=== PATIENT | female | born 1960 | race Caucasian/White ===

== ENCOUNTER → 2020-05-13 13:21 | Outpatient (CLI) | payer OTHER, SELFPAY ==
--- NOTE | ~2020-05-13 | DEXA_ITS ---
Bone Density Report Name: Radha Mendiola Age: 59 Sex: Female Ethnicity: White Date of : 1960 Indication: osteopenia; hysterectomy; postmenopausal Referring Provider: Emma Rangel Study: Bone densitometry was performed. Exam Date: May 13, 2020 Accession number: [id number] Bone Density: Region BMD T-score Z-score Classification AP Spine (L1-L4) 0.850 -1.8 -0.3 Osteopenia Femoral Neck (Left) 0.652 -1.8 -0.5 Osteopenia Total Hip (Left) 0.903 -0.3 0.7 Normal Femoral Neck (Right) 0.679 -1.5 -0.2 Osteopenia Total Hip (Right) 0.867 -0.6 0.4 Normal Total Hip Mean 0.885 -0.5 0.6 Normal World Health Organization criteria for BMD impression classify patients as: Normal (T-score at or above -1.0), Osteopenia (T-score between -1.0 and -2.5), or Osteoporosis (T-score at or below -2.5). 10-year Fracture Risk(1): Major Osteoporotic Fracture 8.3% Hip Fracture 0.9% Reported Risk Factors: [place] (), Neck BMD=0.652, BMI=22.1 (1) FRAX(R) Version 3.08. Fracture probability calculated for an untreated patient. Fracture probability may be lower if the patient has received treatment. Previous Exams: Region Exam Age BMD T-score BMD Change BMD Change Date g/cm2 vs Baseline vs Previous AP Spine(L1-L4) 05/13/2020 59 0.850 -1.8 -0.100* -0.058* 04/22/2018 57 0.909 -1.3 -0.041* 0.007 05/16/2015 54 0.902 -1.3 -0.048* -0.048* 03/21/2012 51 0.950 -0.9 Total Hip(Left) 05/13/2020 59 0.903 -0.3 -0.036* -0.006 04/22/2018 57 0.909 -0.3 -0.030* 0.000 05/16/2015 54 0.909 -0.3 -0.030* -0.030* 03/21/2012 51 0.939 0.0 Total Hip(Right) 05/13/2020 59 0.867 -0.6 -0.028* -0.001 04/22/2018 57 0.869 -0.6 -0.027 -0.010 05/16/2015 54 0.879 -0.5 -0.017 -0.017 03/21/2012 51 0.896 -0.4 *Denotes significance at 95% confidence level, LSC for AP Spine = 0.022 g/cm2, LSC for Total Hip = 0.027 g/cm2 Clinical Information Provided by Patient: Has used the following medications: Vitamin D, Calcium Has the following medical conditions: Hysterectomy Patient maximum height was 65.8 Menopause Age: 51 No regular weight bearing exercise Drinks caffeinated beverages Onset of menses at age 12 Number of children 4 Impression: The patient has low bone mass, based on
--- NOTE | ~2020-05-13 | MM_ITS ---
EXAMINATION: MM screening [facility] BI w go HISTORY: Screening mammogram TECHNIQUE: Craniocaudal and mediolateral oblique 3-D tomosynthesis images were obtained and synthetic 2-D images were generated. CAD analysis was submitted and interpreted. COMPARISON: 05/05/2019, 11/01/2018, 04/25/2018, 01/30/2016 BREAST PARENCHYMAL COMPOSITION: The breasts are heterogeneously dense, which may obscure small masses . FINDINGS: There is no evidence of suspicious mass, calcification, or architectural distortion to sugg est malignancy in either breast. There has been no suspicious interval change. IMPRESSION: 1. No mammographic evidence of malignancy. 2. Recommend routine screening mammography in one year. BI-RADS Category 1: Negative Reviewed, dictated and finalized at location A.
== END ==
PROVIDERS: PCP Family Medicine; Visit Provider Student in an Organized Health Care Education/Training Program
DX: Z12.31 Encounter for screening mammogram for malignant neoplasm of breast (principal); Z13.820 Encounter for screening for osteoporosis; Z78.0 Asymptomatic menopausal state; M85.89 Other specified disorders of bone density and structure, multiple sites
CPT/HCPCS: 77063; 77067; 77080

== ENCOUNTER → 2021-06-05 14:54 | Outpatient (CLI) | payer OTHER, SELFPAY ==
--- NOTE | ~2021-06-05 | MM_ITS ---
EXAMINATION: MM screening [facility] BI w go HISTORY: Screening TECHNIQUE: Craniocaudal and mediolateral oblique 3-D tomosynthesis images were obtained and synthetic 2-D images were generated. CAD analysis was submitted and interpreted. COMPARISON: Comparison to multiple prior studies sequentially, with oldest reviewed study dated 11/2017. BREAST PARENCHYMAL COMPOSITION: The breasts are heterogenously dense, which may obscure small masses FINDINGS: There is no evidence of suspicious mass, calcification, or architectural distortion to sugg est malignancy in either breast. There has been no suspicious interval change. IMPRESSION: 1. No mammographic evidence of malignancy. 2. Recommend routine screening mammography in one year. BI-RADS Category 1: Negative Reviewed, dictated and finalized at location A.
== END ==
PROVIDERS: Visit Provider Student in an Organized Health Care Education/Training Program
DX: Z12.31 Encounter for screening mammogram for malignant neoplasm of breast (principal)
CPT/HCPCS: 77063; 77067

== ENCOUNTER → 2022-09-02 12:50 | Outpatient (CLI) | payer OTHER, SELFPAY ==
--- NOTE | ~2022-09-02 | MM_ITS ---
EXAMINATION: MM screening [facility] BI w go HISTORY: Screening TECHNIQUE: Craniocaudal and mediolateral oblique 3-D tomosynthesis images were obtained and synthetic 2-D images were generated. CAD analysis was submitted and interpreted. COMPARISON: Comparison to multiple prior studies sequentially, with oldest reviewed study dated 11/2017. BREAST PARENCHYMAL COMPOSITION: The breasts are heterogeneously dense, which may obscure small masses FINDINGS: There is no evidence of suspicious mass, calcification, or architectural distortion to sugg est malignancy in either breast. There has been no suspicious interval change. IMPRESSION: 1. No mammographic evidence of malignancy. 2. Recommend routine screening mammography in one year. BI-RADS Category 1: Negative Reviewed, dictated and finalized at location B. BASE DBA
== END ==
PROVIDERS: Visit Provider Student in an Organized Health Care Education/Training Program
DX: Z12.31 Encounter for screening mammogram for malignant neoplasm of breast (principal)
CPT/HCPCS: 77063; 77067

== ENCOUNTER → 2022-12-14 12:53 | Outpatient (CLI) | payer BC, SELFPAY ==
--- NOTE | ~2022-12-14 | US_ITS ---
Thyroid ultrasound. Clinical History: Nontoxic goiter Findings: Real-time sonography of the thyroid gland was performed. The right lobe measures 6.1 x 2.1 x 2.1 cm. The left lobe measures 5.2 x 1.6 x 1.7 cm. The isthmus is 3 mm in AP diameter. There is 8 mm heterogeneous hypoechoic nodule at the left lower pole. There is a 2.1 x 0.9 x 1.6 cm m ixed solid and cystic nodule at the right upper pole. There is a 0.9 cm hypoechoic possibly spongifor m nodule at the right midpole. Multiple additional smaller bilateral thyroid nodules are present. Impression: 2.1 cm solid and cystic nodule in the right upper pole. Annual follow-up ultrasound advised. Reviewed, dictated and finalized at location . Impression: 2.1 cm solid and cystic nodule in the right upper pole. Annual follow-up ultras ound advised.
== END ==
PROVIDERS: PCP Emergency Medicine; Visit Provider Registered Nurse
DX: E04.9 Nontoxic goiter, unspecified (principal)
CPT/HCPCS: 76536

== ENCOUNTER → 2022-12-18 11:09 | Outpatient (CLI) | payer BC, SELFPAY ==
--- NOTE | ~2022-12-18 | XR_ITS ---
AP and lateral views of the right hip Clinical history: Pain Findings: No acute fracture or dislocation is seen. Osseous alignment is anatomic. The right hip join t is preserved. Soft tissues are unremarkable. Impression: No significant abnormality is seen. Reviewed, dictated and finalized at location . Impression: No significant abnormality is seen.
--- NOTE | ~2022-12-18 | XR_ITS ---
XR knee RT 3V DATE: 12/18/2022 11:50 INDICATION: Right knee pain TECHNIQUE: [place] and standing AP and lateral views COMPARISON: None FINDINGS: No fracture or dislocation or joint effusion. No periosteal reaction or bone destruction. J oint spaces are preserved. No radiopaque intra-articular loose body or chondrocalcinosis. IMPRESSION: Negative Reviewed, dictated and finalized at location B. IMPRESSION: Negative
--- NOTE | ~2022-12-18 | XR_ITS ---
XR lumbar spine 2-3V DATE: 12/18/2022 11:51 INDICATION: Back pain TECHNIQUE: AP, lateral, coned lateral lumbosacral views COMPARISON: 08/17/2017 lumbar spine FINDINGS: There is diffuse osteopenia. Degenerative spurring of the lower thoracic spine. There is multilevel degenerative disc disease of the lumbar spine, severe at L2-3, mild at L1-2 and L 3-4. There is degenerative change at the apophyseal joints particularly in the lower lumbar and lumbosacra l area with associated grade 1 anterolisthesis at L4-5. No fracture or bone destruction is evident. Included lower thoracic and lumbar pedicles are intact. T he sacroiliac joints appear intact. IMPRESSION: Osteopenia Multilevel degenerative disc disease, most prominent at L2-3 Grade 1 anterolisthesis at L4-5 Reviewed, dictated and finalized at location B.
== END ==
PROVIDERS: PCP Emergency Medicine; Visit Provider Physician Assistant
DX: M51.36 Other intervertebral disc degeneration, lumbar region (principal); M85.88 Other specified disorders of bone density and structure, other site; M25.561 Pain in right knee
CPT/HCPCS: 72100; 73502; 73562

== ENCOUNTER → 2023-01-08 15:24 | Outpatient (CLI) | payer BC, SELFPAY ==
--- NOTE | ~2023-01-08 | MR_ITS ---
MRI of the right knee Clinical history: Pain Technique: Coronal proton density and proton density-weighted images, sagittal proton-density and T2 fat-sat images, and axial proton-density fat-saturated images were acquired. Findings: Anterior and posterior cruciate ligaments are intact. Medial collateral ligament and the la teral collateral ligament complex are intact. Popliteus tendon is intact. Medial meniscus is intact, without evidence of tear. There is large horizontal tear involving the bod y segment probably of the lateral meniscus. There is an associated 0.5 x 1.4 x 2.6 cm para -meniscal cyst along the lateral margin of the lateral meniscus (series 6 image 7, series 2 image 19). There is mild chondromalacia throughout the knee. Bone marrow signals are unremarkable. Extensor mechanism is intact. Minimal joint effusion present. [id number] Hernandez's cyst present. Impression: Large horizontal tear of the body segment of the lateral meniscus with associated 0.5 x 1.4 x 2.6 cm para-meniscal cyst, as detailed above. Small to moderate Hernandez's cyst. Mild chondromalacia throughout the knee. Reviewed, dictated and finalized at location . Impression: Large horizontal tear of the body segment of the lateral meniscus with associat ed 0.5 x 1.4 x 2.6 cm para-meniscal cyst, as detailed above. Small to moderate Hernandez's cyst. Mild chondromalacia throughout the knee.
== END ==
PROVIDERS: PCP Emergency Medicine; Visit Provider Physician Assistant Surgical
DX: M71.21 Synovial cyst of popliteal space [Baker], right knee (principal); S83.281A Other tear of lateral meniscus, current injury, right knee, initial encounter; X58.XXXA Exposure to other specified factors, initial encounter; M22.41 Chondromalacia patellae, right knee
CPT/HCPCS: 73721

== ENCOUNTER 2023-12-14 10:37 | Outpatient (CLI) | payer BC, SELFPAY ==
--- NOTE | ~2023-12-14 | US_ITS ---
EXAMINATION: US thyroid DATE: 12/14/2023 10:53 INDICATION: Nontoxic single thyroid nodule. TECHNIQUE: Multiple ultrasound images of the thyroid were obtained. COMPARISON: Thyroid ultrasound 12/14/2022 FINDINGS: The right thyroid lobe measures 5.6 x 2.4 x 2.0 cm. The left thyroid lobe measures 3.9 x 1.5 x 1.6 c m. In the right thyroid lobe, there is a 20 mm mixed cystic and solid, hypoechoic, wider than tall n odule with smooth margin without echogenic foci (TI-RADS TR3). In the left thyroid lobe, there is an 8 mm solid, hypoechoic, wider than tall nodule with ill-defined margin without echogenic foci (TR4). There are multiple nodules in the thyroid measuring less than 5 mm. IMPRESSION: 1. Multinodular goiter. Thyroid ultrasound is recommended in 2 years. Reviewed, dictated and finalized at location A.
== END 2023-12-14 10:38 ==
PROVIDERS: PCP Emergency Medicine; Visit Provider Obstetrics & Gynecology
DX: E04.2 Nontoxic multinodular goiter (principal)
CPT/HCPCS: 76536

== ENCOUNTER 2023-12-22 11:25 | Outpatient (CLI) | payer BC, SELFPAY ==
--- NOTE | ~2023-12-22 | MM_ITS ---
EXAMINATION: MM screening [facility] BI w go HISTORY: Screening TECHNIQUE: Craniocaudal and mediolateral oblique 3-D tomosynthesis images were obtained and synthetic 2-D images were generated. CAD analysis was submitted and interpreted. COMPARISON: Comparison to multiple prior studies sequentially, with oldest reviewed study dated 02/2018. BREAST PARENCHYMAL COMPOSITION: Dense: The breasts are heterogeneously dense, which may obscure small masses FINDINGS: There is no evidence of suspicious mass, calcification, or architectural distortion to sugg est malignancy in either breast. There has been no suspicious interval change. IMPRESSION: 1. No mammographic evidence of malignancy. 2. Recommend routine screening mammography in one year. BI-RADS Category 1: Negative Reviewed, dictated and finalized at location A.
== END 2023-12-22 11:26 ==
LOC: MICIMG 11:27
PROVIDERS: PCP Nurse Practitioner Family; Visit Provider Nurse Practitioner Family
DX: Z12.31 Encounter for screening mammogram for malignant neoplasm of breast (principal)
CPT/HCPCS: 77063; 77067

== ENCOUNTER 2024-06-10 07:51 | Outpatient (CLI) | payer BC, SELFPAY ==
--- NOTE | ~2024-06-10 | DEXA_ITS ---
Bone Density Report Name: DEV COMBS Age: 63 Sex: Female Ethnicity: White Date of : 1960 Indication: postmenopausal; screening for osteoporosis; cancer; hysterectomy; Referring Provider: RUDY TORRES Study: Bone densitometry was performed. Exam Date: June 10, 2024 Accession number: [id number] Bone Density: Region BMD T-score Z-score Classification AP Spine(L1-L4) 0.854 -1.8 0.0 Osteopenia Femoral Neck (Left) 0.640 -1.9 -0.4 Osteopenia Total Hip (Left) 0.879 -0.5 0.7 Normal Femoral Neck (Right) 0.661 -1.7 -0.2 Osteopenia Total Hip (Right) 0.870 -0.6 0.6 Normal Total Hip Mean 0.875 -0.6 0.7 Normal World Health Organization criteria for BMD impression classify patients as: Normal (T-score at or above -1.0), Osteopenia (T-score between -1.0 and -2.5), or Osteoporosis (T-score at or below -2.5). 10-year Fracture Risk(1): Major Osteoporotic Fracture 9.5% Hip Fracture 1.3% Reported Risk Factors: [place] (), Neck BMD=0.640, BMI=23.0 (1) FRAX(R) Version 3.08. Fracture probability calculated for an untreated patient. Fracture probability may be lower if the patient has received treatment. Clinical Information Provided by Patient: Has used the following medications: Vitamin D, Calcium Has the following medical conditions: Cancer, Hysterectomy Patient maximum height was 65.75 Menopause Age: 51 Drinks caffeinated beverages Onset of menses at age 12 Number of children 4 Impression: The patient has low bone mass, based on the Left Femoral Neck T-score. The patient has an estimated ten-year risk of hip fracture of 1.3% and an estimated ten-year risk of major fracture of 9.5%, based on the WHO FRAX algorithm. Discussion: BONE DENSITY IS LOW AT ONE OR MORE SKELETAL SITES. This patient's lowest T-score is low at one or more skeletal sites. It meets the World Health Organization's (WHO) criteria for ?low bone mass? (T-score between -1.0 and -2.5). The patient's 10-year risk of fracture as calculated by FRAX is less than the threshold where pharmacological therapy is recommended by the National Osteoporosis Foundation (NOF). However, all treatment decisions require clinical judgment and consideration of individual patient factors, including patient preferences, comorbidities, previous drug use, risk factors not captured in the FRAX model (e.g., frailty, falls, vitamin D deficiency, increased bone turnover, interval significant decline in bone density) and possible under or overestimation of fracture risk by FRAX. The patient should follow a healthful lifestyle (good nutrition with adequate calcium and vitamin D, and appropriate weight-bearing exercise). Follow-Up: Consider repeating this study in 2 to 3 years to reassess this patient's status, or sooner if there is
== END 2024-06-10 07:52 | disposition home or self-care (01) ==
LOC: ANHIMG 08:00
PROVIDERS: PCP Emergency Medicine; Visit Provider Nurse Practitioner Family
DX: Z13.820 Encounter for screening for osteoporosis (principal); M85.89 Other specified disorders of bone density and structure, multiple sites; Z78.0 Asymptomatic menopausal state
CPT/HCPCS: 77080

== ENCOUNTER 2025-02-22 14:09 | Outpatient (CLI) | payer OTHER, SELFPAY ==
--- NOTE | ~2025-02-22 | MM_ITS ---
EXAMINATION: MM screening [facility] BI w go HISTORY: Screening TECHNIQUE: Craniocaudal and mediolateral oblique 3-D tomosynthesis images were obtained and synthetic 2-D images were generated. CAD analysis was submitted and interpreted. COMPARISON: 12/22/2023 through 05/05/2019. BREAST PARENCHYMAL COMPOSITION: The breasts are heterogeneously dense, which may obscure small masses . FINDINGS: There is no evidence of suspicious mass, calcification, or architectural distortion to sug gest malignancy in either breast. There has been no suspicious interval change. IMPRESSION: 1. No mammographic evidence of malignancy. 2. Recommend routine screening mammography in one year. BI-RADS Category 1: Negative Reviewed, dictated and finalized at location []
== END 2025-02-22 14:10 | disposition home or self-care (01) ==
LOC: MICIMG 14:10
PROVIDERS: PCP Family Medicine; Visit Provider Nurse Practitioner Family
DX: Z12.31 Encounter for screening mammogram for malignant neoplasm of breast (principal)
CPT/HCPCS: 77063; 77067

== ENCOUNTER 2025-03-30 17:01 | Inpatient (IN) | payer OTHER, SELFPAY ==
--- NOTE | ~2025-03-30 | CT_ITS ---
Clinical Indication: Chest pain CT Scan of the Chest with Contrast: Technique: Contiguous sections were acquired throughout the chest after intravenous administration of 100 cc of Omnipaque 350. Dose reduction technique was used on this scan by utilizing automated expos ure control and iterative reconstruction technique. The dose-length product (DLP) was 188.40 mGy-cm. Findings: There is no evidence of any significant mediastinal, hilar or axillary lymphadenopathy. There is no f illing defect in the pulmonary arterial tree to suggest pulmonary embolus. There is no evidence of ao rtic dissection or aneurysm. No pericardial effusion. Minimal right pleural effusion present. No left pleural effusion. There is consolidation at the anteroinferior right upper lobe, compatible with pneumonia. There is mi nimal dependent atelectatic change bilaterally. Images through the upper abdomen reveal hepatic cyst. Impression: No evidence of pulmonary embolus, aortic dissection, or aortic aneurysm. Pneumonia in the anterior, inferior right upper lobe. Minimal right pleural effusion. Reviewed, dictated and finalized at location . Impression: No evidence of pulmonary embolus, aortic dissection, or aortic aneurysm. Pneumonia in the anterior, inferior right upper lobe. Minimal right pleural effusion.
--- NOTE | ~2025-03-30 | XR_ITS ---
XR chest 2V Ordering provider: Alejandro Storm MD History: 64 years Female with . R sided chest pain . Comparison: August 12, 2011 FINDINGS: MEDIASTINUM: The cardiac silhouette is not enlarged. LUNGS: No infiltrates, effusions or pneumothorax. OTHER: No free air under the diaphragm. Degenerative changes of the spine. IMPRESSION: No acute cardiopulmonary pathology. Reviewed, dictated and finalized at location A.
--- NOTE | ~2025-03-30 | NM_ITS ---
EXAMINATION: NM vlad stress w perfusion DATE: 04/02/2025 11:38 INDICATION: Chest pain TECHNIQUE: Rest images were obtained following intravenous administration of 10 mCi Tc99m tetrofosmin (Myoview). The patient was infused intravenously with Lexiscan (Regadenoson). Then, 37 mCi Tc99m tet rofosmin (Myoview) was administered intravenously, and stress images were obtained. Data was reconstr ucted into short axis and horizontal and vertical long axis SPECT images. Gated SPECT images were als o obtained. COMPARISON: None. FINDINGS: There is no definite reversible or fixed perfusion abnormality to suggest ischemia or infar ction. There is normal left ventricular chamber size, wall motion and ejection fraction. Left ventr icular ejection fraction measures >70%. IMPRESSION: 1. Normal myocardial perfusion at rest and during stress. 2. Left ventricular ejection fraction measuring >70%. Reviewed, dictated and finalized at location A.
--- NOTE | 2025-03-30 17:02 | ECG_ITS ---
Test Date: 2025-03-30 17:16:21 Measurements Intervals [place] Rate: 106 P: 74 IA: 151 QRS: 76 QRSD: 84 T: 61 QT: 312 QTc: 414 Interpretive Statements SINUS TACHYCARDIA WITH FREQUENT SUPRAVENTRICULAR PREMATURE COMPLEXES Electronically Signed On 03-31-2025 08:10:11 CDT by Curt Gallegos D.O
--- OUTSIDE RECORDS SUMMARY | 2025-03-30 17:02 | XMS_ITS | Clinical Summary ---
Author Organization [facility] Address [address] [place] [address] Care Team Providers Care Integrated Specialist Name Role Phone Chelsie Roth MD Primary Care Provider [phone] Source Comments [facility],non-owned Affiliates and Associated Physician Practices is amultiple site organization consisting of ambulatory clinics and hospital sitesin [place], [place], [place] and [place]. This disclosure is being madepursuant to the Care Everywhere program and may not contain all information available regarding this patient. Last updated 18.[facility] Allergies No known active allergies Medications * Be aware that medications may not be up to date on this document. Alwaysverify current medications with the patient. hydrocodone-acet aminophen (NORCO) 5-325 MG tablet Take 1 Tab by mouth every 4 hours as needed for Pain. 15 Tab 0 11/02/2014 Active cyclobenzaprine (FLEXERIL) 5 MG TABS tablet Take 1 Tab by mouth every 8 hours as needed (Spasms). 15 Tab 0 11/02/2014 Active Social History Tobacco Use Types Packs/Day Years Used Date Smoking Tobacco: Never Alcohol Use Standard Drinks/Week Comments No 0 (1 standard drink = 0.6 oz pur e alcohol) Comments Unknown Sex and Gender Information Value Date Recorded Sex Assigned at Not on file Legal Sex Female 8:09 PM [employer] Gender Identity Not on file Sexual Orientation Not on file Last Filed Vital Signs Vital Sign Reading Time Taken Comments Blood Pressure 125/62 11/02/2014 10:29 PM [employer] Pulse 82 11/02/2014 10:29 PM [employer] Temperature 36.9 C (98.4 F) 11/02/2014 8:18 PM [employer] Respiratory Rate 16 11/02/2014 10:29 PM [employer] Oxygen Saturation 100% 11/02/2014 10:29 PM [employer] Inhaled Oxygen Concentration - - Weight 58.5 kg (129 lb) 11/02/2014 8:18 PM [employer] Height 165.1 cm (5' 5) 11/02/2014 8:18 PM [employer] Body Mass Index 21.47 11/02/2014 8:18 PM [employer] Plan of Treatment Health Maintenance Due Date Last Done Comments BONE DENSITY TESTING 1960 COLOGUARD (AGES 45-75) - COL ON CA SCREENING 1960 COLON MONITORING 1960 COLONOSCOPY - COLON CA SCREENING 1960 CT COLONOGRAPHY - COLON CA SCREENING 1960 Colorectal Cancer Screening 1959 FIT - COLON CA SCREENING 1959 FLEX SIG - COLON CA SCREENING 1959 LIPID TESTING 1959 MAMMOGRAM 1959 HIV SCREENING 1974 HEPATITIS C SCREENING 06/28/1977 DTAP/TDAP/TD VACCINES (1 - Tdap) 1978 PNEUMOCOCCAL VACCINE 50+ (1 of 1 - PCV) 2009 ZOSTER VACCINE (1 of 2) 2009 COVID-19 VACCINE (1 - 2023-2 5 season) 2024 DEPRESSION SCREENING 09/20/2024 INFLUENZA VACCINE (#1) 2025 Respiratory Syncytial Virus (RSV) Vaccine Pt: or over 60 yrs (1 - 1-dose 75+ series) 2034 HEPATITIS B VACCINE Aged Out No longe r eligible based on patient's age to complete this topic HIB VACCINE Aged Out No longer eligi ble based on patient's age to complete this topic HPV VACCINE Aged Out No longer eligi ble based on patient's age to complete this topic MENINGOCOCCAL (Group B) VACC INE SHARED DECISION-MAKING Aged Out No longer eligibl e based on patient's age to complete this topic MENINGOCOCCAL GROUPS A/C/Y/W VACCINE Aged Out No longer eligible b ased on patient's age to complete this topic Insurance [employer] Care Teams Integrated Specialist Relationship Specialty Start Date End Date Chelsie Roth MD [address] [place] [address] PCP - General Family Medicine 11/02/14
--- OUTSIDE RECORDS SUMMARY | 2025-03-30 17:02 | XMS_ITS | Encounter Summary ---
Author Organization [facility] Address [address] [place] [address] Phone Care Team Providers Care Separator Operator Name Role Phone Chris Yoo MD Primary Care Provider [phone] Reason for Visit * Reason Onset Date Comments In office procedure 03/26/2025 Encounter Details Date Type Department Care Team (Late st Contact Info) Description 03/26/2025 Telephone [facility] Dermatology [address] [place] [phone] Sherri Goel PA [address] [place] [address] In office procedure Social History Tobacco Use Types Packs/Day Years Used Date Smoking Tobacco: Never Smokeless Tobacco: Never Alcohol Use Standard Drinks/Week Comments Yes 0 (1 standard drink = 0.6 oz pur e alcohol) AUDIT-C Answer Date Recorded Q1: How often do you have a drink containing alc ohol? 2-4 times a month 12/28/2023 Average Number of Drinks Not on file 024 Frequency of Binge Drinking Not on file 05/2024 Personal Safety Answer Date Recorded Have you ever been in or are you currently in a harmful physical or emotional relationship or is someone making you feel afraid or unsafe? 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 Radha Mendiola wants to speak with someone before rescheduling. documented in this encounter Plan of Treatment Not on file documented as of this encounter Visit Diagnoses Not on filedocumented in this encounter Care Teams Separator Operator Relationship Specialty Start Date End Date Chris Yoo MD [address] [facility] [address] [address] PCP - General Family Medicine 12/28/23 documented as of this encounter
--- OUTSIDE RECORDS SUMMARY | 2025-03-30 17:02 | XMS_ITS | Clinical Summary ---
Author Organization [facility] Address [address] [place] [address] Care Team Providers Care Phone Triage Specialist Name Role Phone Chris Yoo MD Primary Care Provider [phone] Allergies Active Allergy Reactions Criticality Noted Date Comments Amoxicillin-Pot Clavulanate Diarrhea Low 09/09/20 18 Medications geriatric multivitamin-mi n tablet Take 1 tablet by mouth nightly Active biotin 1 mg capsule Take 1 tablet by mouth 2 (two) times a day Active glucosamine/cho ndr carbajal A sod (OSTEO BI-FLEX ORAL) Take 1 tablet by mouth 2 (two) times a day Active calcium carbonate-vitam in D3 1,500 mg (600mg elemental) -800 unit per tablet Take 1 tablet by mouth daily Active estradioL (ESTRACE) 0.01 % (0.1 mg/gram) vaginal cream 5 Active metroNIDAZOLE (METROCREAM) 0.75 % creamIndication s:Acne Rosacea Apply topically 2 (two) times a day On the face 45 g 1 5 Active Active Problems Problem Noted Date Diagnosed Date Trigger thumb of right hand 01/31/2024 Incomplete uterovaginal prolapse 11/30/2023 Cystocele, midline 11/30/2023 Stress incontinence, female 11/30/2023 Right hand pain 12/30/2022 Trigger finger of right thumb 12/30/2022 Actinic keratosis 07/02/2017 Skin neoplasm 07/02/2017 Basal cell carcinoma (BCC) of lower extremity History of nonmelanoma skin cancer 07/02/2015 Encounters Date Type Department Care Team Description 03/26/2025 Telephone [facility] [address] [place] [address] Sherri Goel PA In office procedure 01/11/2025 Results Follow-Up [facility] [address] [place] [address] Sherri Goel PA Surgical pathology 01/08/2025 Orders Only [facility] [address] [place] [address] Sherri Goel PA Neoplasm of unspecified behavior of bone, soft tissue, and skin 01/05/2025 8:15 AM CDT Office Visit [facility] [address] [place] [phone] Sherri Goel PA Neoplasm of unspecified behavior of bone, soft tissue, and skin (Primary Dx); Rosacea, unspecified; Lichenoid keratosis; History of nonmelanoma skin cancer from Last 3 Months Surgical History Surgery Date Site/Laterality Comments HYSTERECTOMY SKIN CANCER DESTRUCTION MOUTH SURGERY cyst removed from gums CATARACT EXTRACTION 10/21/2023 Bilateral BLADDER SUSPENSION 12/28/2023 with sling TRIGGER FINGER RELEASE 02/15/2024 Right thumb Medical History Medical History Date Comments Basal cell carcinoma of skin of face Basal cell carcinoma of skin of face - (Added by TW Conv) Arthritis Incomplete uterovaginal prolapse Cystocele, midline Stress incontinence, female Family History Medical History Relation Name Comments Diabetes Brother Arthritis Father Basal cell carcinoma Father Family history of basal cell carcinoma - (Added by TW Conv) Arthritis Mother Hypertension Mother Relation Name Status Comments Brother Father Mother Social History Tobacco Use Types Packs/Day Years [...] on file 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 Gender Identity Not on file Sexual Orientation Not on file 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 Not on file Not on file Not on file Obstetrics History Last Filed Vital Signs Vital Sign Reading Time Taken Comments Blood Pressure 123/80 02/15/2024 7:50 AM CDT Pulse 71 02/15/2024 7:50 AM CDT Temperature 36.2 C (97.1 F) 02/15/2024 7:35 AM CDT Respiratory Rate 14 02/15/2024 7:50 AM CDT Oxygen Saturation 98% 02/15/2024 7:50 AM CDT Inhaled Oxygen Concentration - - Weight 61.9 kg (136 lb 8 oz) 02/15/2024 6:11 AM CDT Height 165.1 cm (5' 5) 02/15/2024 6:11 AM CDT Body Mass Index 22.71 02/15/2024 6:11 AM CDT Plan of Treatment Health Maintenance Due Date Last Done Comments Breast Cancer Screening-Mammogram 1960 Colon Cancer Screening-Colonoscopy 1960 Depression Screening 1959 Hepatitis C Screening 1959 Osteoporosis Screening-Bone Density Scan 1959 DTaP/Tdap/Td Vaccine (1 - Tdap) 1970 Hepatitis B Screening 1977 Pneumococcal vaccine 65+ (1 of 1 - PCV) 2009 Zoster Vaccine (1 of 2) 2009 Well Visit 65+ 2024 Fall Risk Assessment 12/27/2024 12/28/2023 Influenza Vaccine (#1) 2025 06/23/2019, 2017 Medical Devices Implanted Type Area Labor Crew Supervisor Device Identifier Shelf Expiration Date Model / Serial / Lot [employer] Upsylon 35.4cm Elongation Profile Lightweight Large Pore Low [id number] - [id number] Implanted:Qty: 1 on 12/28/2023 by Osmar Acharya MD at [facility] N/A: Pelvis [employer] 09/19/2026 [id number] / / [id number] [employer] Sling Urinary Incontinence Female Stress Short Desara Blue Lori-Ds01bs - [id number] Implanted:Qty: 1 on 12/28/2023 by Osmar Acharya MD at [facility] N/A: Urethra [employer] 06/10/2026 LORI-DS01B S / / [id number] Procedures Procedure Name Priority Date/Time Associated Diagnosis Comments SURGICAL PATHOLOGY Routine 01/05/2025 12 :00 AM CDT Neoplasm of unspecified behavior of bone, soft tissue, and skin from Last 3 Months Results * Surgical pathology (01/05/2025 12:00 AM CDT) Tissue (Skin, shave biopsy) 01/05/2025 01/08/2025 6:07 AM CDT [facility] - 01/09/2025 2:43 PM CDT EPIC results best viewed via link to PDF [facility]at[facility] [address] [place] [address], [address], [place] [address] [email or web address] Note to Patients: This report may contain a detailed description of human tissue sent by a health care provider to the laboratory for pathologic evaluation. The content of this report is essential for diagnosis and may provide important critical findings. This information may be unfamiliar to patients to review without a medical professional present. It is advised that the patient review this report in the presence of a health care provider who can answer questions and explain the details. FINAL REPORT Patient Information: PATIENT NAME: RADHA MENDIOLA SEX: F : 1960 (Age: 64) Specimen Information: COLLECTED: 01/05/2025 RECEIVED: 01/08/2025 REPORTED: 01/09/2025 Submitting Physician Information: Sherri Goel PA-C [address], [address], [place] [address] , DERMATOPATHOLOGY REPORT RESULTS DIAGNOSIS: A. SKIN, RIGHT CHEST, SHAVE BIOPSY: BASAL CELL CARCINOMA B. SKIN, RIGHT WRIST, SHAVE BIOPSY: BASAL CELL CARCINOMA galileo/lac By this signature, I attest that the above diagnosis is based upon my personal examination of the slides(and/or other material indicated in the diagnosis). Patria Costa M.D. Report Electronically Reviewed and Signed Out By Patria Costa M.D. 01/09/2025 14:43:18 CLINICAL INFORMATION A. BCC B. SCC SPECIMEN DATA MICROSCOPIC DESCRIPTION: A-B. Irregular aggregates of atypical basal epithelial cells with palisading of their peripheral nuclei are present within the dermis. (C44.91) GROSS DESCRIPTION: A. Received in a formalin-containing bottle is a superficial fragment of pale ferguson, finely scaling, and semi-translucent skin measuring 0.7 by 0.5 by 0.1 cm. The surgical margin is inked blue. The specimen is sectioned into 2 pieces and submitted entirely in a single cassette. Due to shrinkage, measurements may be different than those at the time of procedure. B. Received in a formalin-containing bottle is a superficial fragment of pale ferguson, finely scaling, and semi-translucent skin measuring 0.6 by 0.4 by 0.1 cm. The surgical margin is inked blue. The specimen is sectioned into 2 pieces and submitted entirely in a single cassette. Due to shrinkage, measurements may be different than those at the time of procedure. sxt/anc ICD-9 ZSD.176 Clerical Data A; 12856 B; 51755 The characteristics of special, immunohistochemical, and immunofluorescence stains and in-situ hybridization tests performed by the [facility] Dermatopathology [facility] were deemed acceptable in ongoing quality assurance tester measures and in compliance with regulations drawn from the Clinical Laboratory Improvement Act xy3763 (CLIA '88). Control reactions for all stains performed were deemed adequate and appropriate by a pathologist prior to evaluation of patient tissue. Some diagnoses were rendered with the assistance of laboratory-developed tests utilizing analyte-specific reagents; the performance characteristic of these tests were determined by [facility] and are not cleared or approved by the [place] Food an Drug administration. Laboratory developed test may only be performed in a facility that is certified by the [facility] as a high-complexity laboratory under CLIA '88. These tests are used for clinical purposes and are not investigational. Sherri PATEL LAB PATHOLOGY OR DERABLES Final Result DERMATOPATHOLOGY CENTER [address] [place] [address] from Last 3 Months Insurance [employer] O[employer] Care Teams Phone Triage Specialist Relationship Specialty Start Date End Date Chris Yoo MD [address] [place] [address] DR SIERRA [address] [place] [id number] PCP - General Family Medicine 12/28/23
--- OUTSIDE RECORDS SUMMARY | 2025-03-30 17:02 | XMS_ITS | Referral Summary ---
Author Organization [facility] Address [address] [place] [address] Care Team Providers Care Registered Account Administrator Name Role Phone Chris Yoo MD Primary Care Provider [phone] Encounters Date Type Department Care Team Description 03/26/2025 Telephone [facility] [address] [place] [address] [address] [place] [address] Sherri Goel PA In office procedure 01/11/2025 Results Follow-Up [facility] [address] [place] [address] [address] [place] [address] Sherri Goel PA Surgical pathology 01/08/2025 Orders Only [facility] [address] [place] [address] Sherri Goel PA Neoplasm of unspecified behavior of bone, soft tissue, and skin 01/05/2025 8:15 AM CDT Office Visit [facility] [address] [place] [address] [address] [place] [address] Sherri Goel PA Neoplasm of unspecified behavior of bone, soft tissue, and skin (Primary Dx); Rosacea, unspecified; Lichenoid keratosis; History of nonmelanoma skin cancer from Last 3 Months Allergies Active Allergy Reactions Criticality Noted Date [...] (ESTRACE) 0.01 % (0.1 mg/gram) vaginal cream Active metroNIDAZOLE (METROCREAM) 0.75 % creamIndication s:Acne [...] extremity History of nonmelanoma skin cancer 07/02/2015 Social History Tobacco Use Types Packs/Day Years [...] on file 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 Gender Identity Not on file Sexual Orientation Not on file 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 on file Not on file Not on file Last Filed Vital Signs [...] 02/15/2024 6:11 AM CDT Plan of Treatment Not on file Medical Devices Implanted Type Area Sales Team Recruiter Device Identifier Shelf Expiration Date Model / Serial / Lot [employer] Dora Upsylon 35.4cm Elongation Profile Lightweight Large Pore Low [id number] - [id number] Implanted:Qty: 1 on 12/28/2023 by Osmar Acharya MD at [facility] N/A: Pelvis [employer] Dora 09/19/2026 [id number] / / [id number] [employer] Sling Urinary Incontinence Female Stress Short Desara Blue Lori-Ds01bs - [id number] Implanted:Qty: 1 on 12/28/2023 by Osmar Acharya MD at [facility] N/A: Urethra [employer] 06/10/2026 LORI-DS01B S / / [id number] Procedures Procedure Name Priority Date/Time Associated Diagnosis Comments SURGICAL PATHOLOGY Routine 01/05/2025 12 :00 AM CDT Neoplasm of unspecified behavior of bone, soft tissue, and skin from Last 3 Months Results * Surgical pathology (01/05/2025 12:00 AM CDT) Tissue (Skin, shave biopsy) 01/05/2025 01/08/2025 6:07 AM CDT [facility] - 01/09/2025 2:43 PM CDT [facility] results best viewed via link to PDF [facility]ermatopathology Center [address] [place] [address], [address], [place] [address] [email or web address] Note to Patients: This report may contain [...] 01/09/2025 Submitting Physician Information: Sherri Goel PA-C [address] [place] [address] , DERMATOPATHOLOGY REPORT RESULTS DIAGNOSIS: A. SKIN, [...] procedure. sxt/anc ICD-9 ZSD.176 Clerical Data A; 88218 B; 82143 The characteristics of special, immunohistochemical, and immunofluorescence stains and in-situ hybridization tests performed by the [facility] Dermatopathology Center were deemed acceptable in ongoing data quality consultant measures and in compliance with regulations drawn from the Clinical Laboratory Improvement Act ap9548 (CLIA '88). Control reactions for all stains performed were deemed adequate and appropriate by a pathologist prior to evaluation of patient tissue. Some diagnoses were rendered with the assistance of laboratory-developed tests utilizing analyte-specific reagents; the performance characteristic of these tests were determined by [facility] and are not cleared or approved by the [place] Food an Drug administration. Laboratory developed test may only be performed in a facility that is certified by the [facility] as a high-complexity laboratory under CLIA '88. These tests are used for clinical purposes and are not investigational. us Sherri PATEL LAB PATHOLOGY OR DERABLES Final Result DERMATOPATHOLOGY CENTER [address] [place] [id number] from Last 3 Months Insurance [facility] [employer] OOS Member Subscriber Plan / Payer (Ef fective 2022-Present) Name:Radha Mendiola Relation to Subscriber:Self Name:Radha Mendiola Payer ID:[id number] (NAIC) Type:[facility] Address: [id number] [place] [address] [employer] OOS Member Subscriber Plan / Payer (Ef fective 2022-Present) Name:Radha Mendiola Relation to Subscriber:Spouse Name:SOLE MENDIOLA Date of :1958 (Home) Address: [address] [place] [address] [place] [address] Payer ID:[id number] (NA) Type:[facility] Address: [address] [place] [address] Care Teams Registered Account Administrator Relationship Specialty Start Date End Date Chris Yoo MD [address] [place] [address] DR SIERRA [address] [place] [address] [place] [id number] PCP - General Family Medicine 12/28/23
--- OUTSIDE RECORDS SUMMARY | 2025-03-30 17:02 | XMS_ITS | Clinical Summary ---
Author Organization [facility] Address [address] [place] [address] Care Team Providers Care Quality Engineer Medical Device Name Role Phone Steve Lopez Primary Care Provider [phone] Allergies No known active allergies Medications No known medications Social History Tobacco Use Types Packs/Day Years Used Date Smoking Tobacco: Never Smokeless Tobacco: Never Tobacco Cessation:Counseling Given: Not Answered Alcohol Use Standard Drinks/Week Comments Never 0 (1 standard drink = 0.6 oz pur e alcohol) Comments No Sex and Gender Information Value Date Recorded Sex Assigned at Not on file Legal Sex Female 9:49 AM CDT Gender Identity Female 12/31/2022 11:16 AM CDT Sexual Orientation Not on file Last Filed Vital Signs Vital Sign Reading Time Taken Comments Blood Pressure 121/63 01/11/2023 9:44 AM CDT Pulse 70 01/11/2023 9:44 AM CDT Temperature 21.1 C (70 F) 01/11/2023 9:44 AM CDT Respiratory Rate 16 01/11/2023 8:48 AM CDT Oxygen Saturation 98% 01/11/2023 9:44 AM CDT Inhaled Oxygen Concentration - - Weight 59.4 kg (131 lb) 01/01/2023 2:20 PM CDT Height 165.1 cm (5' 5) 01/01/2023 2:20 PM CDT Body Mass Index 21.8 01/01/2023 2:20 PM CDT Plan of Treatment Health Maintenance Due Date Last Done Comments Colorectal Cancer Screening Colonoscopy (10 Years) 1959 Hepatitis C 1977 Mammogram Screening 1999 Pneumococcal Vaccine: 50+ Years (1 of 1 - PCV) 2009 COVID-19 Vaccine ( season) 2024 06/22/2022, 08/20/2021, 01/10/2021, Additional history exists Dexa Scan (General) 2024 DTaP, Tdap and Td Vaccines (2 - Td or Tdap) 12/17/2032 12/17/2022 RSV Immunization or 60+ Years (1 - 1-dose 75+ series) 2034 Zoster Vaccines Completed 10/08/2021, 06/26/2021 Meningococcal B Vaccine Aged Out No l onger eligible based on patient's age to complete this topic Meningococcal Vaccine Aged Out No pierce paramjit eligible based on patient's age to complete this topic RSV Immunizations Under 20 Months Aged Out No longer eligible based on patient's age to complete this topic Medical Devices Implanted Type Area Brusher Tender Device Identifier Shelf Expiration Date Model / Serial / Lot 1 Piece Iol With [employer] Simplicity Delivery System Implanted:Qty: 1 on 01/11/2023 by Ry Contreras MD at [facility] Right: Eye 08/25/2025 / [id number] / Insurance [facility] Care Teams Quality Engineer Medical Device Relationship Specialty Start Date End Date Steve Lopez PA [address] [address] [place] [address] PCP - General PHYSICIAN GUM REMOVER 01/11/23
[2025-03-30 17:08] VITALS: BP 114/65; PULSE 104; RESP 16; TEMP 37.1; O2SAT 100
[2025-03-30 17:26] LABS: Hematocrit 38.5 % (37.0-47.0); Hemoglobin 12.5 g/dL (12.0-15.0); Immature Granulocyte Percent A 0.4 % (0-0.5); Lymphocytes Absolute Auto 1.19 K/mm3 (0.9-3.2); Mean Corpuscular HGB Conc 32.5 g/dl (32-36); Mean Corpuscular Hemoglobin 30.4 pg (26-34); Mean Corpuscular Volume 93.7 fl (80-100); Nucleated Red Blood Cells Absolute Auto 0.000 K/mm3 (0.0-0.012); Nucleated Red Blood Cells Perc 0.0 % (0.0-0.2); Platelet Count Result 181 k/mm3 (150-375); Red Blood Count 4.11 M/mm3 (4.2-5.4); White Blood Count 10.5 K/mm3 (4.5-10.0)
[2025-03-30 17:50] LABS: Alanine Aminotransferase 20 U/L (6-35); Albumin Level 4.0 g/dL (3.5-5.1); Alkaline Phosphatase 70 U/L (38-126); Anion Gap 7 mmol/L (4-12); Aspartate Amino Transferase 29 U/L (14-36); Bilirubin,Total 0.6 mg/dL (0.2-1.3); Blood Urea Nitrogen 21 mg/dL (7-17); Calcium 8.8 mg/dL (8.4-10.2); Carbon Dioxide 24 mmol/L (22-30); Chloride 105 mmol/L (98-107); Estimated CRCL calculation 62 ml/min; Estimated Glomerular Filt Rate > 60; Glucose 120 mg/dL (65-110); Lipase 81 U/L (23-300); Potassium 3.7 mmol/L (3.4-5.0); Sodium 136 mmol/L (137-145); Total Protein 6.9 g/dL (6.3-8.2)
[2025-03-30 18:01] LABS: INR 1.0; Prothrombin Time 13.1 Seconds (11.1-14.7)
[2025-03-30 18:02] LABS: Partial Thromboplastin Time 26.7 Seconds (22.3-36.8); Troponin I < 0.012 ng/mL (0.000-0.034)
--- NOTE | 2025-03-30 19:24 | ED_ITS ---
HPI - Chest Pain General Chief Complaint: Chest Pain <GAIL Thornton Last Filed: 03/31/25 01:13> Stated Complaint: R sided chest pain since yesterday <GAIL Thornton Last Filed: 03/31/25 01:13> Time Seen by Provider: 03/30/25 19:24 <Mago Ware PA-C - Last Filed: 03/31/25 01:13> Focused HPI: This is a 64 year old female that presents to the ER for chest pain. Ongoing since last night. Reports she was seated watching TV when it started. She thought it was maybe indigestion. Reports shaking. She took Ibuprofen and went to bed. Reports currently right sided chest discomfort that is sharp in nature. Worse with bending forward, movement. Relieved with rest. GENERAL: Well-appearing, well-nourished, and in no acute distress. HEAD: Normocephalic, atraumatic. CHEST: Clear to auscultation. ?No respiratory distress. HEART: Irregularly irregular NEURO: ?Alert and oriented x3. Patient screened in triage and initial orders placed.? ?Additional care and disposition to be based upon?diagnostic testing and treatment. <GAIL Thornton Last Filed: 03/31/25 01:13> Related Data Home Medications: Home Medications ?Medication ?Instructions ?Recorded ?Confirmed ?Last Taken ?Type biotin 5 mg capsule 5 mg PO DAILY 03/04/20 03/31/25 03/30/25 History calcium 600 mg (as carbonate)-vit 1 tablet PO .Q12hr 03/04/20 03/31/25 03/30/25 History D3 20 mcg (800 unit) chewable tablet (Caltrate plus D) ghkauxxn-sep-qfeb-FA-Ca carb-vit K 1 tablet PO DAILY 03/04/20 03/31/25 03/30/25 History 18 mg iron-400 mcg-500 mg tablet (One-A-Day Womens Formula) glucosamine-chondroitin 250 mg-200 2 tablet PO .q12HR 12/03/22 03/31/25 03/30/25 History mg tablet (Osteo Bi-Flex) <GAIL Thornton Last Filed: 03/31/25 01:13> Allergies/Adverse Reactions: Allergies Allergy/AdvReac Type Severity Reaction Status Date / Time No Known Allergies Allergy Unknown Verified 12/25/24 14:09 <Mago Ware PA-C - Last Filed: 03/31/25 01:13> Review of Systems 2 Review of Systems: All systems reviewed & are unremarkable except as noted in HPI and below <Mago Ware PA-C - Last Filed: 03/31/25 01:13> [facility] Past Medical History Medical History: Medical History Prolapse urethral mucosa Cystocele with rectocele Cyst of lateral meniscus Lateral meniscus tear MR R knee 4.21.23 :Large horizontal tear of the body segment of the lateral meniscus with associated 0.5 x 1.4 x 2.6 cm para-meniscal cyst, as detailed above. Trigger finger of right thumb Skin cancer History of vaginal delivery x 4 <Mago Ware PA-C - Last Filed: 03/31/25 01:13> Surgical History Surgical History: Surgical History History of left cataract extraction History of right cataract extraction (~01/11/23) History of tonsillectomy History of endometrial ablation History of total hysterectomy with bilateral salpingo-oophorectomy (BSO) <Mago Ware PA-C - Last Filed: 03/31/25 01:13> Family History Family History: Family History (Updated 03/31/25 @ 04:42 by Rossy Wilkins RN) Mother Ovarian cancer Hypertension Pacemaker Grandparent Pacemaker <GAIL Thornton Last Filed: 03/31/25 01:13> Social History Social History: Social History Smoking status: Never smoker Second hand tobacco smoke exposure: No Alcohol intake: current Drinks per week: 2 Substance use: never Do You Feel Safe in your Home?: Yes Lack of Transportation: No Lack of Food: Never True Current Housing: I Have Housing Concerned About Future Housing: No Difficulty Paying Gas/Electric Bills: No Difficulty Paying for Meds: No Currently Unemployed: No Education: High School Diploma/GED Difficulty w/ Childcare or Family Care: No Living arrangements: with family Occupation/Education: retired Gender identity (if verbalized by the patient): Female Sexual Orientation (if Verbalized by the Patient): Straight or Heterosexual Spiritual care concerns: No <Mago Ware PA-C - Last Filed: 03/31/25 01:13> Exam 2 Narrative: GENERAL: Well-appearing, well-nourished, and in no acute distress. HEAD: Normocephalic, atraumatic. EYES: EOMI. CHEST: Clear to auscultation. No respiratory distress. No wheezes rales or rhonchi HEART: Irregularly irregular. No murmur heard. Normal peripheral pulses. EXTREMITIES: Normal range of motion. No edema. SKIN: Warm, dry, no rash. NEURO: No focal deficits. Alert and oriented x3. PSYCH: Normal mood and affect <Mago Ware PA-C - Last Filed: 03/31/25 01:13> Course Course Emergency Course: Patient was updated on her workup and recommendation for admission <Mago Ware PA-C - Last Filed: 03/31/25 01:13> CLINICAL DATA PROGRAMMER/PA Physician Supervision For this patient encounter, I reviewed the CLINICAL DATA PROGRAMMER or PA documentation, treatment plan, and medical decision making and had [id number] time with this patient. I performed all aspects of the MDM as documented. <Manny Mosqueda MD - Last Filed: 03/31/25 06:58> Consultations Consultation #1: spoke with hospitalist about patient and workup who accepts admission < Mago Ware PA-C - Last Filed: 03/31/25 01:13> Date: 03/31/25 <GAIL Thornton Last Filed: 03/31/25 01:13> Vital Signs Vital signs: Vital Signs Temperature 98.8 F 03/30/25 17:08 Pulse Rate 104 H 03/30/25 17:08 Respiratory Rate 16 03/30/25 17:08 Blood Pressure 114/65 03/30/25 17:08 Pulse Oximetry 100 03/30/25 17:08 Oxygen Delivery Room Air 03/30/25 17:08 Temperature 98 F 03/31/25 04:30 Pulse Rate 84 03/31/25 06:00 Respiratory Rate 16 03/31/25 04:30 Blood Pressure 90/54 L 03/31/25 04:30 Pulse Oximetry 95 03/31/25 04:30 Oxygen Delivery Room Air 03/30/25 17:08 <Mago Ware PA-C - Last Filed: 03/31/25 01:13> Vital Signs Temperature 98.8 F 03/30/25 17:08 Pulse Rate 104 H 03/30/25 17:08 Respiratory Rate 16 03/30/25 17:08 Blood Pressure 114/65 03/30/25 17:08 Pulse Oximetry 100 03/30/25 17:08 Oxygen Delivery Room Air 03/30/25 17:08 Temperature 98 F 03/31/25 04:30 Pulse Rate 84 03/31/25 06:00 Respiratory Rate 16 03/31/25 04:30 Blood Pressure 90/54 L 03/31/25 04:30 Pulse Oximetry 95 03/31/25 04:30 Oxygen Delivery Room Air 03/30/25 17:08 <Manny Mosqueda MD - Last Filed: 03/31/25 06:58> MDM - Chest Pain MDM Narrative Medical decision making narrative: Patient presents the emergency department for chest pain. Ongoing intermittently since yesterday. Patient appears to be in sinus rhythm with very frequent premature complexes. Intermittently appears to be in atrial flutter/fib. Largely rate controlled. This would be a new diagnosis for her. Otherwise her vitals are stable. CBC and metabolic panel without concerning findings. EKG without acute ST changes, her baseline and 3 hour troponin are negative. D-dimer is not elevated. Chest x-ray without acute cardiopulmonary abnormality. Patient will be admitted for further evaluation/management of new onset arrhythmia <Mago Ware PA-C - Last Filed: 03/31/25 01:13> Differential Diagnosis Differential diagnosis: Likely stable angina, atypical chest pain, costochondritis and other (atrial fibrillation, atrial flutter, SVT) <Mago Ware PA-C - Last Filed: 03/31/25 01:13> Lab Data Attestation: I reviewed the patient's lab results. <Mago Ware PA-C - Last Filed: 03/31/25 01:13> Result diagrams: 03/30/25 17:17 03/30/25 17:17 <Mago Ware PA-C - Last Filed: 03/31/25 01:13> Labs: Lab Results 03/30/25 03/30/25 Range/Units 17:17 20:26 WBC 10.5 H (4.5-10.0) K/mm3 RBC 4.11 L (4.2-5.4) M/mm3 Hgb 12.5 (12.0-15.0) g/dL Hct 38.5 (37.0-47.0) % MCV 93.7 (80-100) fl MCH 30.4 (26-34) pg MCHC 32.5 (32-36) g/dl RDW 12.6 (11.5-14.5) % Plt Count 181 (150-375) k/mm3 MPV 9.7 (7.4-10.4) fl Immature Gran % (Auto) 0.4 (0-0.5) % Neut % (Auto) 78.7 H (45.5-73.1) % Lymph % (Auto) 11.4 L (18.3-44.2) % [place] % (Auto) 8.7 H (2.6-8.5) % Eos % (Auto) 0.4 (0-4.4) % Baso % (Auto) 0.4 (0.2-1.2) % Lymph # (Auto) 1.19 (0.9-3.2) K/mm3 [place] # (Auto) 0.9 H (0.1-0.6) K/mm3 Eos # (Auto) 0.0 (0-0.3) K/mm3 Baso # (Auto) 0.0 (0.0-0.1) K/mm3 Abs Immat Gran (auto) 0.04 H (0.00-0.031) K/mm3 Absolute Neuts (auto) 8.3 H (1.3-6.7) K/mm3 Absolute Nucleated RBC 0.000 (0.0-0.012) K/mm3 Nucleated RBC % 0.0 (0.0-0.2) % PT 13.1 (11.1-14.7) Seconds INR 1.0 APTT 26.7 (22.3-36.8) Seconds D-Dimer 0.35 (<0.48) ug/mL Sodium 136 L (137-145) mmol/L Potassium 3.7 (3.4-5.0) mmol/L Chloride 105 (98-107) mmol/L Carbon Dioxide 24 (22-30) mmol/L Anion Gap 7 (4-12) mmol/L BUN 21 H (7-17) mg/dL Creatinine 0.72 (0.7-1.0) mg/dL Estim Creat Clear Calc 62 ml/min Estimated GFR > 60 (59 - ) Glucose 120 H (65-110) mg/dL Calcium 8.8 (8.4-10.2) mg/dL Total Bilirubin 0.6 (0.2-1.3) mg/dL AST 29 (14-36) U/L ALT 20 (6-35) U/L Alkaline Phosphatase 70 (38-126) U/L Troponin I < 0.012 < 0.012 (0.000-0.034) ng/mL Total Protein 6.9 (6.3-8.2) g/dL Albumin 4.0 (3.5-5.1) g/dL Lipase 81 (23-300) U/L <Mago Ware PA-C - Last Filed: 03/31/25 01:13> Lab Results 03/30/25 03/30/25 Range/Units 17:17 20:26 WBC 10.5 H (4.5-10.0) K/mm3 RBC 4.11 L (4.2-5.4) M/mm3 Hgb 12.5 (12.0-15.0) g/dL Hct 38.5 (37.0-47.0) % MCV 93.7 (80-100) fl MCH 30.4 (26-34) pg MCHC 32.5 (32-36) g/dl RDW 12.6 (11.5-14.5) % Plt Count 181 (150-375) k/mm3 MPV 9.7 (7.4-10.4) fl Immature Gran % (Auto) 0.4 (0-0.5) % Neut % (Auto) 78.7 H (45.5-73.1) % Lymph % (Auto) 11.4 L (18.3-44.2) % [place] % (Auto) 8.7 H (2.6-8.5) % Eos % (Auto) 0.4 (0-4.4) % Baso % (Auto) 0.4 (0.2-1.2) % Lymph # (Auto) 1.19 (0.9-3.2) K/mm3 [place] # (Auto) 0.9 H (0.1-0.6) K/mm3 Eos # (Auto) 0.0 (0-0.3) K/mm3 Baso # (Auto) 0.0 (0.0-0.1) K/mm3 Abs Immat Gran (auto) 0.04 H (0.00-0.031) K/mm3 Absolute Neuts (auto) 8.3 H (1.3-6.7) K/mm3 Absolute Nucleated RBC 0.000 (0.0-0.012) K/mm3 Nucleated RBC % 0.0 (0.0-0.2) % PT 13.1 (11.1-14.7) Seconds INR 1.0 APTT 26.7 (22.3-36.8) Seconds D-Dimer 0.35 (<0.48) ug/mL Sodium 136 L (137-145) mmol/L Potassium 3.7 (3.4-5.0) mmol/L Chloride 105 (98-107) mmol/L Carbon Dioxide 24 (22-30) mmol/L Anion Gap 7 (4-12) mmol/L BUN 21 H (7-17) mg/dL Creatinine 0.72 (0.7-1.0) mg/dL Estim Creat Clear Calc 62 ml/min Estimated GFR > 60 (59 - ) Glucose 120 H (65-110) mg/dL Calcium 8.8 (8.4-10.2) mg/dL Total Bilirubin 0.6 (0.2-1.3) mg/dL AST 29 (14-36) U/L ALT 20 (6-35) U/L Alkaline Phosphatase 70 (38-126) U/L Troponin I < 0.012 < 0.012 (0.000-0.034) ng/mL Total Protein 6.9 (6.3-8.2) g/dL Albumin 4.0 (3.5-5.1) g/dL Lipase 81 (23-300) U/L <Manny Mosqueda MD - Last Filed: 03/31/25 06:58> Imaging Data Radiologist's impression: ITS Impressions Chest X-Ray 03/30/25 18:03 IMPRESSION: No acute cardiopulmonary pathology. <Mago Ware PA-C - Last Filed: 03/31/25 01:13> ECG Data EKG #1: ECG completion date: 03/30/25 <Mago Ware PA-C - Last Filed: 03/31/25 01:13> EKG Interpretation: tachycardia, sinus rhythm and other (frequent premature complexes) < Mago Ware PA-C - Last Filed: 03/31/25 01:13> Critical Care Time Critical Care Time Critical Care Time: No <Mago Ware PA-C - Last Filed: 03/31/25 01:13> Discharge Plan Discharge Clinical Impression: Chest pain Qualifiers: Chest pain type: unspecified Qualified Code(s): R07.9 - Chest pain, unspecified Arrhythmia Qualifiers: Arrhythmia type: atrial fibrillation Atrial fibrillation type: paroxysmal Q ualified Code(s): I48.0 - Paroxysmal atrial fibrillation <Mago Ware PA-C - Last Filed: 03/31/25 01:13> Patient Disposition: Still a Patient <Mago Ware PA-C - Last Filed: 03/31/25 01:13> Condition: Stable <Mago Ware PA-C - Last Filed: 03/31/25 01:13> Quality HEART score for chest pain patients History: slightly suspicious <Mago Ware PA-C - Last Filed: 03/31/25 01:13> ECG: normal <GAIL Thornton Last Filed: 03/31/25 01:13> Age: > or = to 65 years <Mago Ware PA-C - Last Filed: 03/31/25 01:13> Risk factors: no risk factors known <GAIL Thornton Last Filed: 03/31/25 01:13> Troponin: < or = to 1x normal limit <Mago Ware PA-C - Last Filed: 03/31/25 01:13> Heart score: 2 <Mago Ware PA-C - Last Filed: 03/31/25 01:13> 2 <Manny Mosqueda MD - Last Filed: 03/31/25 06:58>
--- OUTSIDE RECORDS SUMMARY | 2025-03-30 19:38 | XMS_ITS | Referral Summary ---
Author Organization [facility] Address [address] [place] [address] Care Team Providers Care Dynamometer Tester Engine Name Role Phone Chris Yoo MD Primary Care Provider [phone] Encounters Date Type Department Care Team Description 03/26/2025 Telephone [facility] [address] [place] [address] [address] [place] [address] Sherri Goel PA In office procedure 01/11/2025 Results Follow-Up [facility] [address] [place] [address] [address] [place] [address] Sherri Goel PA Surgical pathology 01/08/2025 Orders Only INTERIANO PA OUTREACH [address] [place] [address] Sherri Goel PA Neoplasm of unspecified behavior of bone, soft tissue, and skin 01/05/2025 8:15 AM CDT Office Visit [facility] [address] [place] [address] [address] [place] [address] Sherri Goel PA Neoplasm of [...] on file Legal 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 Gender Identity Not on file Sexual Orientation Not on file 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 file Not on file Not [...] on file Medical Devices Implanted Type Area Rail Detector Car Operator Device Identifier Shelf Expiration Date Model / Serial / Lot [employer] Dora Upsylon 35.4cm Elongation Profile Lightweight Large Pore Low [id number] - [id number] Implanted:Qty: 1 on 12/28/2023 by Osmar Acharya MD at [facility] N/A: Pelvis [employer] Dora 09/19/2026 [id number] / / [id number] [employer] Sling Urinary Incontinence Female Stress Short Desara Blue Lori-Ds01bs - [id number] Implanted:Qty: 1 on 12/28/2023 by Osmar Acharya MD at [facility] N/A: Urethra [employer] 06/10/2026 LORI-DS01B S / / [id number] Procedures Procedure Name Priority Date/Time Associated Diagnosis Comments SURGICAL PATHOLOGY Routine 01/05/2025 12 :00 AM CDT Neoplasm of unspecified behavior of bone, soft tissue, and skin from Last 3 Months Results * Surgical pathology (01/05/2025 12:00 AM CDT) Tissue (Skin, shave biopsy) 01/05/2025 01/08/2025 6:07 AM CDT [facility] DERMATOPATHOLOGY [facility] - 01/09/2025 2:43 PM CDT [facility] results best viewed via link to PDF [facility] Dermatopathology Center [address] [place] [address], [address], [place] [address] [email or web address] Note to Patients: This report may [...] 01/09/2025 Submitting Physician Information: Sherri Goel PA-C [address] [place] [address] , DERMATOPATHOLOGY REPORT RESULTS DIAGNOSIS: A. SKIN, [...] procedure. sxt/anc ICD-9 ZSD.176 Clerical Data A; 28014 B; 49314 The characteristics of special, immunohistochemical, and immunofluorescence stains and in-situ hybridization tests performed by the [facility] were deemed acceptable in ongoing training and quality manager measures and in compliance with regulations drawn from the Clinical Laboratory Improvement Act fl2730 (CLIA '88). Control reactions for all stains performed were deemed adequate and appropriate by a pathologist prior to evaluation of patient tissue. Some diagnoses were rendered with the assistance of laboratory-developed tests utilizing analyte-specific reagents; the performance characteristic of these tests were determined by [facility] and are not cleared or approved by the [place] Food an Drug administration. Laboratory developed test may only be performed in a facility that is certified by the [facility] as a high-complexity laboratory under CLIA '88. These tests are used for clinical purposes and are not investigational. us Sherri PATEL LAB PATHOLOGY OR DERABLES Final Result DERMATOPATHOLOGY CENTER [address] [place] [id number] from Last 3 Months Insurance [facility]ARTA ACCESS OOS SPARTA ACCESS OOS Care Teams Dynamometer Tester Engine Relationship Specialty Start Date End Date Chris Yoo MD [address] [place] [address] DR SIERRA [address] [place] [address] [place] [id number] PCP - General Family Medicine 12/28/23
--- OUTSIDE RECORDS SUMMARY | 2025-03-30 19:38 | XMS_ITS | Encounter Summary ---
Author Organization [facility] Address [address] [place] [address] Phone Care Team Providers Care Attic Blower Name Role Phone Chris Yoo MD Primary Care Provider [phone] Reason for Visit * Reason Onset Date Comments In office procedure 03/26/2025 Encounter Details Date Type Department Care Team (Late st Contact Info) Description 03/26/2025 Telephone [facility] Dermatology [address] [place] [phone] Sherri Goel PA [address] 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
--- OUTSIDE RECORDS SUMMARY | 2025-03-30 19:38 | XMS_ITS | Clinical Summary ---
Author Organization [facility] Address [address] [place] [address] Care Team Providers Care Rotary Shear Cutter Name Role Phone Chris Yoo MD Primary Care Provider [phone] Allergies Active Allergy Reactions Criticality Noted Date [...] Type Department Care Team Description 03/26/2025 Telephone [facility] Dermatology [address] [facility] [address] [place] [address] Sherri Goel PA In office procedure 01/11/2025 Results Follow-Up [facility] Dermatology [address] [facility] [address] [place] [address] Sherri Goel PA Surgical pathology 01/08/2025 Orders Only [facility] PA OUTREACH [address] [place] [address] Sherri Goel PA Neoplasm of unspecified behavior of bone, soft tissue, and skin 01/05/2025 8:15 AM CDT Office Visit [facility] Dermatology [address] [facility] [address] [place] [phone] Sherri Goel PA Neoplasm of unspecified behavior [...] on file 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 Gender Identity Not on file Sexual Orientation Not on file 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 Not on file Not [...] 06/23/2019, 2017 Medical Devices Implanted Type Area Biomedical Analytical Scientist Device Identifier Shelf Expiration Date Model / Serial / Lot [employer] Upsylon 35.4cm Elongation Profile Lightweight Large Pore Low [id number] - [id number] Implanted:Qty: 1 on 12/28/2023 by Osmar Acharya MD at [facility] N/A: Pelvis [employer] 09/19/2026 [id number] / / [id number] [employer] Sling Urinary Incontinence Female Stress Short Desara Blue Lori-Ds01bs - [id number] Implanted:Qty: 1 on 12/28/2023 by Osmar Acharya MD at [facility] N/A: Urethra [employer] 06/10/2026 LORI-DS01B S / / [id number] Procedures Procedure Name Priority Date/Time Associated Diagnosis Comments SURGICAL PATHOLOGY Routine 01/05/2025 12 :00 AM CDT Neoplasm of unspecified behavior of bone, soft tissue, and skin from Last 3 Months Results * Surgical pathology (01/05/2025 12:00 AM CDT) Tissue (Skin, shave biopsy) 01/05/2025 01/08/2025 6:07 AM CDT [facility] DERMATOPATHOLOGY CENTER - 01/09/2025 2:43 PM CDT EPIC results best viewed via link to PDF [facility] Dermatopathology Center [address] [place] [address], [address], [place] [address] [email or web address] Note to Patients: This report may [...] Submitting Physician Information: Sherri Goel PA-C [address] [facility], [address], [place] [address] , DERMATOPATHOLOGY REPORT RESULTS DIAGNOSIS: A. SKIN, [...] procedure. sxt/anc ICD-9 ZSD.176 Clerical Data A; 89463 B; 89522 The characteristics of special, immunohistochemical, and immunofluorescence stains and in-situ hybridization tests performed by the [facility] Dermatopathology Center were deemed acceptable in ongoing software quality engineer measures and in compliance with regulations drawn from the Clinical Laboratory Improvement Act xs7421 (CLIA '88). Control reactions for all stains performed were deemed adequate and appropriate by a pathologist prior to evaluation of patient tissue. Some diagnoses were rendered with the assistance of laboratory-developed tests utilizing analyte-specific reagents; the performance characteristic of these tests were determined by [facility] and are not cleared or approved by the [place] Food an Drug administration. Laboratory developed test may only be performed in a facility that is certified by the [facility] as a high-complexity laboratory under CLIA '88. These tests are used for clinical purposes and are not investigational. Sherri PATEL LAB PATHOLOGY OR DERABLES Final Result DERMATOPATHOLOGY CENTER [address] [place] [address] from Last 3 Months Insurance [employer] [facility] Address: [address] [place] [address] [employer] Care Teams Rotary Shear Cutter Relationship Specialty Start Date End Date Chris Yoo MD [address] [place] [address] DR SIERRA [address] [place] [id number] PCP - General Family Medicine 12/28/23
--- OUTSIDE RECORDS SUMMARY | 2025-03-30 19:38 | XMS_ITS | Clinical Summary ---
Author Organization [facility] Address [address] [place] [address] Care Team Providers Care Cementer Machine Applicator Name Role Phone Steve Lopez Primary Care Provider Allergies No known active allergies Medications No [...] this topic Medical Devices Implanted Type Area Nut Sifter Device Identifier Shelf Expiration Date Model / Serial / Lot 1 Piece Iol With [employer]ec[employer] Simplicity Delivery System Implanted:Qty: 1 on 01/11/2023 by Ry Contreras MD at [facility] Right: Eye 08/25/2025 / [id number] / Insurance [facility] Care Teams Cementer Machine Applicator Relationship Specialty Start Date End Date Steve Lopez PA [address] [facility] [address] [place] [address] PCP - General PHYSICIAN ACADEMIC PROGRAM SPECIALIST 01/11/23
--- OUTSIDE RECORDS SUMMARY | 2025-03-30 19:38 | XMS_ITS | Clinical Summary ---
Author Organization [facility] Address [address] [place] [address] Care Team Providers Care Operations Specialists Name Role Phone Chelsie Roth MD Primary Care Provider [phone] Source Comments [facility],non-owned Affiliates and Associated Physician Practices is amultiple site organization consisting of ambulatory clinics and hospital sitesin [place], [place], [place] and [place]. This disclosure is being madepursuant to the Care Everywhere program and may not contain all information available regarding this patient. Last updated 18.[facility] Allergies No known active allergies Medications * [...] on file Legal Sex Female 8:09 PM ROOM MAID Gender Identity Not on file Sexual Orientation Not on file Last Filed Vital Signs Vital Sign Reading Time Taken Comments Blood Pressure 125/62 11/02/2014 10:29 PM ROOM [facility]ID Pulse 82 11/02/2014 10:29 PM ROOM MAID Temperature 36.9 C (98.4 F) 11/02/2014 8:18 PM ROOM MAID Respiratory Rate 16 11/02/2014 10:29 PM ROOM MAID Oxygen Saturation 100% 11/02/2014 10:29 PM ROOM MAID Inhaled Oxygen Concentration - - Weight 58.5 kg (129 lb) 11/02/2014 8:18 PM ROOM MAID Height 165.1 cm (5' 5) 11/02/2014 8:18 PM ROOM MAID Body Mass Index 21.47 11/02/2014 8:18 PM ROOM MAID Plan of Treatment Health Maintenance Due Date [...] this topic Insurance [employer] Care Teams Operations Specialists Relationship Specialty Start Date End Date Chelsie Rtoh MD [address] [place] [address] PCP - General Family Medicine 11/02/14
[2025-03-30 20:14] VITALS: BP 115/67; PULSE 94; RESP 16; O2SAT 98
--- NOTE | 2025-03-30 20:15 | ECG_ITS ---
Test Date: 2025-03-30 20:45:16 Measurements Intervals [place] Rate: 90 P: 53 HI: 150 QRS: 83 QRSD: 93 T: 64 QT: 341 QTc: 418 Interpretive Statements SINUS RHYTHM WITH FREQUENT SUPRAVENTRICULAR PREMATURE COMPLEXES Electronically Signed On 03-31-2025 08:12:11 CDT by Curt Gallegos D.O
[2025-03-30 20:31] VITALS: PULSE 100
[2025-03-30] MEDS: METOPROLOL TARTRATE INJ 5 MG/5 ML VIAL IV PUSH (20:31)
[2025-03-30 20:46] VITALS: BP 120/86; PULSE 93; RESP 15
[2025-03-30 21:10] LABS: Troponin I < 0.012 ng/mL (0.000-0.034)
[2025-03-30 22:12] VITALS: BP 128/97; PULSE 96; RESP 24; O2SAT 100
[2025-03-30] MEDS: SODIUM CHLORIDE 0.9% IV 1,000 ML 999 ML IV CONT (22:16)
[2025-03-30] MEDS: KETOROLAC 15 MG/ML VIAL (*BKC) IV PUSH (22:17)
[2025-03-30 22:31] VITALS: BP 124/70; PULSE 90; RESP 17
[2025-03-30] MEDS: MORPHINE SULFATE (*CRX) 4 MG/ML INJ IV PUSH (23:21)
[2025-03-30] MEDS: ONDANSETRON INJ 4 MG/2 ML VIAL IV PUSH (23:21)
[2025-03-31] VITALS (20 sets, daily range): BP systolic 90–131; BP diastolic 53–70; PULSE 59–110; RESP 14–19; TEMP 36.6–37; O2SAT 95–100; BMI 22.1
--- NOTE | 2025-03-31 | ECHO_ITS ---
Patient Info Name: Radha Mendiola Age: 64 years : 1960 Gender: Female Ht: 66 in Wt: 130 lbs BSA: 1.65 m2 HR: 65 bpm BP: 95 / 54 mmHg Heart Rhythm: Sinus Rhythm Technical Quality: Good Exam Date: 03/31/2025 10:51 AM Patient Status: I Admit Date: 03/30/2025 Exam Type: CA echo doppler color flow Complete two-dimensional, color flow and Doppler transthoracic echocardiogram is performed. Staff Referring Physician: Alejandro Storm MD Svp: Radha Landon Attending Provider: Gamal Siddiqui Summary 1. Complete two-dimensional, color flow and Doppler transthoracic echocardiogram is performed. 2. Left ventricular chamber dimension is normal. 3. Left ventricular systolic function is normal, estimated at 60-65. 4. There is no increased left ventricular wall thickness. 5. The left ventricular diastolic function is normal. 6. Left atrial chamber dimension is mildly enlarged. 7. The mitral valve has thickened leaflets. 8. There is mild to moderate mitral valve regurgitation. 9. There is mild tricuspid valve regurgitation. Left Ventricle Left ventricular chamber dimension is normal. Left ventricular systolic function is normal, estimated at 60-65. There is no increased left ventricular wall thickness. The left ventricular diastolic function is normal. Right Ventricle Right ventricular chamber dimension is normal. Right ventricular systolic function is normal. Left Atria Left atrial chamber dimension is mildly enlarged. Right Atria Right atrial chamber dimension is normal. Atrial Septum Intact interatrial septum visualized by color flow imaging. Aortic Valve The aortic valve is trileaflet. There is mild aortic valve sclerosis. There is no aortic valve stenosis. There is trace aortic valve regurgitation. Pulmonic Valve The pulmonic valve is normal. There is no pulmonic valve stenosis. There is trace pulmonic regurgitation. Mitral Valve The mitral valve has thickened leaflets. There is no mitral valve stenosis. There is mild to moderate mitral valve regurgitation. Tricuspid Valve The tricuspid valve leaflets are normal. There is no significant tricuspid valve stenosis. There is mild tricuspid valve regurgitation. No pulmonary hypertension, estimated pulmonary arterial systolic pressure is 24 mmHg. Pericardium/Pleural The pericardium appears normal. There is no pericardial effusion. Inferior Vena Cava Normal inferior vena cava with <50% collapse upon inspiration consistent with elevated right atrial pressure, 10 mmHg. Aorta The aortic root size at the sinus of Valsalva is normal. Left Ventricular Outflow Tract Name Value Normal LVOT 2D LVOT Diameter 2.0 cm LVOT Doppler LVOT Peak Velocity 129 cm/s LVOT Peak Gradient 7 mmHg LVOT Mean Gradient 3 mmHg LVOT VTI 27 cm LVOT Stroke Volume 83 ml LVOT CO 5.4 l/min LVOT CI 3.3 l/min/m2 Pulmonic Valve Name Value Normal RVOT Doppler RVOT Peak Velocity 49 cm/s RVOT Peak Gradient 1 mmHg PV Doppler PV Peak Velocity 57 cm/s PV Peak Gradient 1 mmHg Mitral Valve Name Value Normal MV Regurgitation Doppler MR Peak Gradient 81 mmHg MV Diastolic Function MV E Peak Velocity 74 cm/s MV A Peak Velocity 40 cm/s MV E/A 1.9 MV Decel Time (PW) 255 ms MV Annular TDI MV E/e' (Septal) 10.5 MV E/e' (Lateral) 6.7 MV E/e' (Average) 8.6 Tricuspid Valve Name Value Normal Estimated PAP/RSVP RA Pressure 10 mmHg <=5 PA Systolic Pressure 24 mmHg <36 Aortic Valve Name Value Normal AV Doppler AV Peak Velocity 149 cm/s AV Peak Gradient 9 mmHg AV Area (Cont Eq Phi) 2.7 cm2 AV DI (Phi) 0.87 AV Regurgitation 2D LVOT Area 3.1 cm2 Ventricles Name Value Normal LV Dimensions 2D/MM IVS Diastolic Thickness (2D) 0.9 cm 0.6-1.0 LVID Diastole (2D) 3.7 cm 3.8-5.2 LVIW Diastolic Thickness (2D) 0.9 cm 0.6-0.9 LVID Systole (2D) 2.6 cm 2.2-3.5 LVOT Diameter 2.0 cm LV Mass (2D Cubed) 101.43 g 67.00-162.00 LV Mass Index (2D Cubed) 61 g/m2 43-95 Relative Wall Thickness (2D) 0.51 <=0.42 LV Fractional Shortening/Ejection Fraction 2D/MM LV Fractional Shortening (2D) 30 % 27-45 LV EF (2D Teichholz) 58 % LV EF (BP MOD) 62 % 54-74 RV Dimensions 2D/MM TAPSE 1.8 cm >=1.7 Atria Name Value Normal LA Dimensions LA Volume (4C A-L) 38 ml LA Volume (BP A-L) 42 ml RA Dimensions RA Systolic Major Craig Length (4C) 4.0 cm 2.2-2.8 RA Area (4C) 12.1 cm2 <=18.0 EchoPAC Name Value Normal AutoEF LVCO_BiP_Q (Wjxp1NYL) 2.4 l/min LVEF_BiP_Q (Qsqa4SLZ) 62 % LVSV_BiP_Q (Honj6KEV) 37 ml LVVED_BiP_Q (Afdu9TYP) 60 ml LVVES_BiP_Q (Quhk2IWB) 23 ml HR_4Ch_Q (Bnfc8KVB) 66 bpm LVCO_4Ch_Q (Spso1MSA) 2.2 l/min LVEF_4Ch_Q (Rmqv1AXX) 63 % LVLd_4Ch_Q (Jwog2AMF) 6.8 cm LVLs_4Ch_Q (Flxp5FJK) 5.7 cm LVSV_4Ch_Q (Vwgt1KNW) 33 ml LVVED_4Ch_Q (Rcnu2SRE) 52 ml LVVES_4Ch_Q (Tnpi0PFM) 19 ml HR_2Ch_Q (Eeuf4WKS) 60 bpm LVCO_2Ch_Q (Djdb2CAZ) 2.6 l/min LVEF_2Ch_Q (Qnjj9DPJ) 62 % LVLd_2Ch_Q (Rbjf0LPB) 7.3 cm LVLs_2Ch_Q (Jttw6FDC) 6.0 cm LVSV_2Ch_Q (Jtjt1BTH) 43 ml LVVED_2Ch_Q (Hnmb5OOI) 69 ml LVVES_2Ch_Q (Hfnt3GJP) 27 ml Report Signatures
[2025-03-31 02:20] LABS: Magnesium 2.3 mg/dL (1.6-2.3)
[2025-03-31 02:33] LABS: Troponin I < 0.012 ng/mL (0.000-0.034)
[2025-03-31] MEDS: ACETAMINOPHEN 325 MG TABLET 650 MG PO (02:54)
[2025-03-31] MEDS: SODIUM CHLORIDE 0.9% IV 500 ML 100 ML IV CONT (02:59)
--- NOTE | 2025-03-31 04:12 | ADMGEN ---
This patient, Radha Mendiola, was admitted to IMU Room 210-01 via bed with one RN and no issues. Patient/family oriented to hospital policies and general routines including ID bracelet, bed and alarms, visiting hours, pain management, procedures, bathroom and other care routines, personal items, smoking policy, room service/diet, and visiting hours. Information on how to activate the Rapid Response Team has been discussed. Patient/Family are encouraged to report perceived risks to care and to ask questions if they do not understand what they are told or what they should do.
--- NOTE | 2025-03-31 08:38 | PM.IMHP ---
H&P: HPI History of Present Illness Date/Time: 03/31/25 08:38 Chief Complaint: Chest pain Narrative: 64 years old lady without significant past medical history present ED with chief complaint of chest pain. The chest pain started yesterday evening when patient will watch in kv. Patient has been having intermittent chest pain since , worse with bending forward and walking. Relief at rest patient denies headache, lightheadedness, fever, chills, abdomen pain, nausea vomiting diarrhea dysuria Upon arrival to ED, patient afebrile, patient was found have tachycardia, pulse ox 100% room air 90/54, Patient was found AFib in the ED Chemistry unremarkable except elevated BUN creatinine ratio 21/0.72 Troponin x3 negative EKG showed statin medicine, frequent PAC Chest x-ray showed no acute cardiopulmonary issues D-dimer negative Review of Systems Review of Systems: ROS negative except above PMFSH Past Medical History Medical History Prolapse urethral mucosa Cystocele with rectocele Cyst of lateral meniscus Lateral meniscus tear MR R knee 4.21.23 :Large horizontal tear of the body segment of the lateral meniscus with associated 0.5 x 1.4 x 2.6 cm para-meniscal cyst, as detailed above. Trigger finger of right thumb Skin cancer History of vaginal delivery x 4 Surgical History Surgical History History of left cataract extraction History of right cataract extraction (~01/11/23) History of tonsillectomy History of endometrial ablation History of total hysterectomy with bilateral salpingo-oophorectomy (BSO) Family History Family History (Updated 03/31/25 @ 04:42 by Rossy Wilkins RN) Mother Ovarian cancer Hypertension Pacemaker Grandparent Pacemaker Social History Social History Smoking status: Never smoker Second hand tobacco smoke exposure: No Alcohol intake: current Drinks per week: 2 Substance use: never Do You Feel Safe in your Home?: Yes Lack of Transportation: No Lack of Food: Never True Current Housing: I Have Housing Concerned About Future Housing: No Difficulty Paying Gas/Electric Bills: No Difficulty Paying for Meds: No Currently Unemployed: No Education: High School Diploma/GED Difficulty w/ Childcare or Family Care: No Living arrangements: with family Occupation/Education: retired Gender identity (if verbalized by the patient): Female Sexual Orientation (if Verbalized by the Patient): Straight or Heterosexual Spiritual care concerns: No Meds Home Medications and Allergies Home Medications ?Medication ?Instructions ?Recorded ?Confirmed ?Type biotin 5 mg capsule 5 mg PO DAILY 03/04/20 03/31/25 History calcium 600 mg (as carbonate)-vit 1 tablet PO .Q12hr 03/04/20 03/31/25 History D3 20 mcg (800 unit) chewable tablet (Caltrate plus D) fnbxtiof-hzl-vyjh-FA-Ca carb-vit K 1 tablet PO DAILY 03/04/20 03/31/25 History 18 mg iron-400 mcg-500 mg tablet (One-A-Day Womens Formula) glucosamine-chondroitin 250 mg-200 2 tablet PO .q12HR 12/03/22 03/31/25 History mg tablet (Osteo Bi-Flex) Allergies Allergy/AdvReac Type Severity Reaction Status Date / Time No Known Allergies Allergy Unknown Verified 12/25/24 14:09 Vital Signs Vital Signs - 24 hr 03/30/25 17:08 03/30/25 20:14 03/30/25 20:31 Temperature 98.8 F Pulse Rate 104 H 94 100 Respiratory Rate 16 16 Blood Pressure 114/65 115/67 Pulse Oximetry 100 98 Oxygen Delivery Room Air 03/30/25 20:46 03/30/25 22:12 03/30/25 22:31 Temperature Pulse Rate 93 96 90 Respiratory Rate 15 24 H 17 Blood Pressure 120/86 128/97 H 124/70 Pulse Oximetry 100 Oxygen Delivery 03/31/25 00:25 03/31/25 00:30 03/31/25 01:45 Temperature Pulse Rate 94 89 88 Respiratory Rate 19 14 18 Blood Pressure 113/61 101/68 102/70 Pulse Oximetry 98 95 Oxygen Delivery 03/31/25 04:19 03/31/25 04:30 03/31/25 06:00 Temperature 98 F Pulse Rate 110 H 86 84 Respiratory Rate 16 Blood Pressure 90/54 L Pulse Oximetry 95 Oxygen Delivery 03/31/25 07:29 Temperature 98.0 F Pulse Rate 80 Respiratory Rate 18 Blood Pressure 95/54 L Pulse Oximetry 99 Oxygen Delivery Exam Narrative: GENERAL: Pleasant, in no acute distress. Well-nourished. - EYES: EOMI. Anicteric. - HENT: Moist mucous membranes. - LUNGS: Clear to auscultation bilaterally, no wheezing, rhonchi, or rales. - CARDIOVASCULAR: Regular rate and rhythm. No murmur. No JVD. - ABDOMEN: Soft, non-tender and non-distended. No palpable masses. - EXTREMITIES: No edema. Peripheral pulses 2+. Non-tender. - NEUROLOGIC: No focal neurological deficits. CN II-XII grossly intact. - PSYCHIATRIC: Awake, Alert and oriented x 3. Appropriate mood and affect. - SKIN: No rashes or lesions. Warm. - LYMPH: No cervical lymphadenopathy. H&P: Results Labs Labs: Short CBC 03/30/25 Range/Units 17:17 WBC 10.5 H (4.5-10.0) K/mm3 Hgb 12.5 (12.0-15.0) g/dL Hct 38.5 (37.0-47.0) % Plt Count 181 (150-375) k/mm3 BMP 03/30/25 17:17 Sodium 136 L Potassium 3.7 Chloride 105 Carbon Dioxide 24 BUN 21 H Creatinine 0.72 Glucose 120 H Calcium 8.8 Cardiac Enzymes 03/30/25 03/30/25 03/31/25 Range/Units 17:17 20:26 01:59 Troponin I < 0.012 < 0.012 < 0.012 (0.000-0.034) ng/mL Liver Function 03/30/25 Range/Units 17:17 Total Bilirubin 0.6 (0.2-1.3) mg/dL AST 29 (14-36) U/L ALT 20 (6-35) U/L Alkaline Phosphatase 70 (38-126) U/L Albumin 4.0 (3.5-5.1) g/dL Assessment and Plan Assessment and plan (1) Chest pain: Qualifiers: Chest pain type: unspecified Qualified Code(s): R07.9 - Chest pain, unspecified Code(s): R07.9 - Chest pain, unspecified Status: Acute (2) Arrhythmia: Qualifiers: Arrhythmia type: atrial fibrillation Atrial fibrillation type: paroxysmal Qualified Code(s): I48.0 - Paroxysmal atrial fibrillation Code(s): I49.9 - Cardiac arrhythmia, unspecified Status: Acute (3) Mixed hyperlipidemia: Code(s): E78.2 - Mixed hyperlipidemia Status: Acute (4) Dehydration: Code(s): E86.0 - Dehydration Status: Acute (5) Hypotension due to hypovolemia: Code(s): E86.1 - Hypovolemia Status: Acute Plan Hypovolemic hypotension Upon arrival in the ED, patient was hypotensive, tachycardia Elevated BUN creatinine ratio above 20 Received fluid resuscitation in the ED Blood pressure still no, start normal saline bolus 500 mL Will continue normal saline IV a 25 mL/hour, Chest pain Patient had right chest pain Worse when patient bent over Troponin x3 negative EKG showed sinus rhythm, tachycardia, frequent PAC X-ray shows no acute cardiopulmonary issue, D-dimer negative 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
[2025-03-31] MEDS: ASPIRIN 81 MG ENTERIC TABLET PO (10:28)
[2025-03-31] MEDS: SODIUM CHLORIDE 0.9% IV 1,000 ML 125 ML IV CONT (10:29)
[2025-03-31 11:17] LABS: Hematocrit 35.2 % (37.0-47.0); Hemoglobin 11.5 g/dL (12.0-15.0); Mean Corpuscular HGB Conc 32.7 g/dl (32-36); Mean Corpuscular Hemoglobin 30.7 pg (26-34); Mean Corpuscular Volume 94.1 fl (80-100); Platelet Count Result 138 k/mm3 (150-375); Red Blood Count 3.74 M/mm3 (4.2-5.4); White Blood Count 6.3 K/mm3 (4.5-10.0)
[2025-03-31 11:42] LABS: Alanine Aminotransferase 15 U/L (6-35); Albumin Level 3.1 g/dL (3.5-5.1); Alkaline Phosphatase 55 U/L (38-126); Anion Gap 3 mmol/L (4-12); Aspartate Amino Transferase 23 U/L (14-36); Bilirubin,Total 0.7 mg/dL (0.2-1.3); Blood Urea Nitrogen 12 mg/dL (7-17); CRP 5.7 mg/dL (<1.0); Calcium 8.5 mg/dL (8.4-10.2); Carbon Dioxide 22 mmol/L (22-30); Chloride 112 mmol/L (98-107); Cholesterol 183 mg/dL (0-200); Estimated CRCL calculation 70 ml/min; Estimated Glomerular Filt Rate > 60; Glucose 83 mg/dL (65-110); HDL Direct 65 mg/dL; Potassium 4.1 mmol/L (3.4-5.0); Sodium 137 mmol/L (137-145); Total Protein 5.8 g/dL (6.3-8.2); Triglycerides 72 mg/dL (<150)
--- NOTE | 2025-03-31 15:10 | PM.CNCAR ---
Assessment and Plan Assessment and plan (1) Arrhythmia: Qualifiers: Arrhythmia type: atrial fibrillation Atrial fibrillation type: paroxysmal Qualified Code(s): I48.0 - Paroxysmal atrial fibrillation Code(s): I49.9 - Cardiac arrhythmia, unspecified Status: Acute Assessment and Plan: She has frequent PACs and had a period of atrial fibrillation this morning which was asymptomatic. 2D echocardiogram with Doppler has been ordered and will be reviewed. Will check a TSH and a free T4 level. (2) Chest pain: Qualifiers: Chest pain type: unspecified Qualified Code(s): R07.9 - Chest pain, unspecified Code(s): R07.9 - Chest pain, unspecified Status: Acute Assessment and Plan: Atypical. Not anginal. It sounds pleuritic. D-dimer was negative an x-ray is unremarkable. White count was slightly elevated but has since normalized. Symptoms improved with Tylenol and she was also given Toradol. Cannot completely exclude pericarditic etiology albeit unusual presentation. (3) Hypotension due to hypovolemia: Code(s): E86.1 - Hypovolemia Status: Acute Assessment and Plan: Receiving IV fluids and feeling better. Will reduce IV fluids down to 75 mL per hour (4) Atrial fibrillation: Code(s): I48.91 - Unspecified atrial fibrillation Status: Acute Assessment and Plan: Episode of atrial fibrillation. In sinus rhythm at this point. Will start low-dose metoprolol tartrate 12.5 mg p.o. b.i.d.. She has a chads Vasc score of 2 based upon age and gender. Because this score of 2 is made up of did these 2 risk factors however the recommendation would still be and the type platelet therapy. Will initiate aspirin 81 mg p.o. daily History of Present Illness History of Present Illness Consult date/time: 03/31/25 15:10 Requesting physician: Mago Ware PA-C Consult reason: chest pain and Other (Arrhythmia) Reason For Visit: Chest pain, arrhythmia Narrative: Date of service 03/31/2025 Reason for consultation: Arrhythmia, chest pain Requesting provider: Mago Ware History: Patient is a 64-year-old female without significant past medical history who presented to hospital because of some chest pain. She states that her symptoms started 2 days ago while sitting down watching TV. Her symptoms were described as right-sided chest pain worsen if she bent over. She did take some ibuprofen. She describes as a stabbing pain as well as worsened by breathing. She did have some shakiness. She ended up going to bed in yesterday still had some residual discomfort. She was at the pool yesterday whenever she had a recurrence of her symptoms of felt much more significant in she came to the hospital for further evaluation. She was given morphine without much benefit. EKG shows frequent PACs, sinus rhythm and had paroxysms of atrial fibrillation. She had atrial fibrillation this morning and she had no symptoms at that time however. She was given Tylenol before she went to sleep last night which seemed to greatly help her symptoms and she currently has no discomfort at all. She was also found to be dehydrated with a BUN over 20 and a creatinine of less than 1. She has received IV fluids. She denies feeling palpitations, syncope, paroxysmal nocturnal dyspnea, presyncope, edema. Review of Systems Review of Systems: All systems reviewed & are unremarkable except as noted in HPI and below Constitutional: Constitutional: Denies body ache(s) Eyes: Eyes: Denies blurry vision ENT: Reports Normal hearing present Cardiovascular: Cardiovascular: Reports chest pain and Denies leg edema Respiratory: Respiratory: Denies dyspnea Gastrointestinal: Gastrointestinal: Denies abdominal pain Genitourinary: Genitourinary: Denies hematuria Musculoskeletal: Musculoskeletal: Denies myalgias Integumentary/Breasts: Skin/Breast: Denies dry skin Neurologic: Denies Abnormal speech present Psychiatric: Psychiatric: Denies anxiety and Denies behavioral changes Endocrine: Endocrine: Denies excessive sweating Hematologic/Lymphatic: Hematologic/Lymphatic: Denies easy bleeding Allergic/Immunologic: Allergic/Immunologic: Denies GI upset with certain foods PMFSH Past Medical History Medical History (Updated 03/31/25 @ 15:15 by Vamshi Yee MD) Atrial fibrillation Prolapse urethral mucosa Cystocele with rectocele Cyst of lateral meniscus Lateral meniscus tear MR R knee 4.21.23 :Large horizontal tear of the body segment of the lateral meniscus with associated 0.5 x 1.4 x 2.6 cm para-meniscal cyst, as detailed above. Trigger finger of right thumb Skin cancer History of vaginal delivery x 4 Surgical History Surgical History History of left cataract extraction History of right cataract extraction (~01/11/23) History of tonsillectomy History of endometrial ablation History of total hysterectomy with bilateral salpingo-oophorectomy (BSO) Family History Family History (Updated 03/31/25 @ 04:42 by Rossy Wilkins RN) Mother Ovarian cancer Hypertension Pacemaker Grandparent Pacemaker Social History Social History Smoking status: Never smoker Second hand tobacco smoke exposure: No Alcohol intake: current Drinks per week: 2 Substance use: never Do You Feel Safe in your Home?: Yes Lack of Transportation: No Lack of Food: Never True Current Housing: I Have Housing Concerned About Future Housing: No Difficulty Paying Gas/Electric Bills: No Difficulty Paying for Meds: No Currently Unemployed: No Education: High School Diploma/GED Difficulty w/ Childcare or Family Care: No Living arrangements: with family Occupation/Education: retired Gender identity (if verbalized by the patient): Female Sexual Orientation (if Verbalized by the Patient): Straight or Heterosexual Spiritual care concerns: No Meds Home Medications and Allergies Home Medications ?Medication ?Instructions ?Recorded ?Confirmed ?Type biotin 5 mg capsule 5 mg PO DAILY 03/04/20 03/31/25 History calcium 600 mg (as carbonate)-vit 1 tablet PO .Q12hr 03/04/20 03/31/25 History D3 20 mcg (800 unit) chewable tablet (Caltrate plus D) behaighr-nja-fjar-FA-Ca carb-vit K 1 tablet PO DAILY 03/04/20 03/31/25 History 18 mg iron-400 mcg-500 mg tablet (One-A-Day Womens Formula) glucosamine-chondroitin 250 mg-200 2 tablet PO .q12HR 12/03/22 03/31/25 History mg tablet (Osteo Bi-Flex) Allergies Allergy/AdvReac Type Severity Reaction Status Date / Time No Known Allergies Allergy Unknown Verified 12/25/24 14:09 Vital Signs Vital Signs - 24 hr 03/30/25 17:08 03/30/25 20:14 03/30/25 20:31 Temperature 37.1 C Pulse Rate 104 H 94 100 Respiratory Rate 16 16 Blood Pressure 114/65 115/67 Pulse Oximetry 100 98 Oxygen Delivery Room Air 03/30/25 20:46 03/30/25 22:12 03/30/25 22:31 Temperature Pulse Rate 93 96 90 Respiratory Rate 15 24 H 17 Blood Pressure 120/86 128/97 H 124/70 Pulse Oximetry 100 Oxygen Delivery 03/31/25 00:25 03/31/25 00:30 03/31/25 01:45 Temperature Pulse Rate 94 89 88 Respiratory Rate 19 14 18 Blood Pressure 113/61 101/68 102/70 Pulse Oximetry 98 95 Oxygen Delivery 03/31/25 04:19 03/31/25 04:30 03/31/25 06:00 Temperature 36.6 C Pulse Rate 110 H 86 84 Respiratory Rate 16 Blood Pressure 90/54 L Pulse Oximetry 95 Oxygen Delivery 03/31/25 07:29 03/31/25 08:00 03/31/25 09:47 Temperature 36.7 C Pulse Rate 80 89 74 Respiratory Rate 18 Blood Pressure 95/54 L Pulse Oximetry 99 Oxygen Delivery 03/31/25 11:21 03/31/25 11:24 03/31/25 12:00 Temperature 36.8 C Pulse Rate 59 L 61 72 Respiratory Rate 18 Blood Pressure 98/57 L 101/53 L Pulse Oximetry 100 Oxygen Delivery 03/31/25 14:00 Temperature Pulse Rate 72 Respiratory Rate Blood Pressure Pulse Oximetry Oxygen Delivery Exam Narrative: Awake alert oriented appears stated age Const: General: comfortable and no acute distress HENMT: Face/Nose/Sinus: Normal nares present Mouth: Yes moist mucous membranes Eyes: General: appearance normal, both eyes and all related structures Sclera: sclerae normal Neck: Neck: supple and no JVD Carotids: no bruits Chest: Other: No reproducible chest wall pain to palpation Resp: Effort & Inspection: normal respiratory effort Auscultation: clear to auscultation bilaterally Cardio: Rate: regular rate Rhythm: regular rhythm Heart sounds: no murmurs GI: Inspection: non-distended GI Palp: Yes Soft to palpation Auscultation: normal bowel sounds Skin: General skin exam: normal color and no rashes or lesions noted Neuro: Speech: normal speech Sensory Exam: normal sensation Extrem: General: normal to inspection Psych: Mental Status: mental status grossly normal Affect: normal affect Results Labs and Meds 03/31/25 11:10 03/31/25 11:10 Lab results: Cardiac Enzymes 03/30/25 03/30/25 03/31/25 Range/Units 17:17 20:26 01:59 AST 29 (14-36) U/L Troponin I < 0.012 < 0.012 < 0.012 (0.000-0.034) ng/mL 03/31/25 Range/Units 11:10 AST 23 (14-36) U/L Troponin I (0.000-0.034) ng/mL Coagulation 03/30/25 Range/Units 17:17 PT 13.1 (11.1-14.7) Seconds APTT 26.7 (22.3-36.8) Seconds Lipids 03/31/25 03/31/25 03/31/25 Range/Units 11:10 11:10 11:10 Triglycerides 72 Cancelled (<150) mg/dL Cholesterol 183 Cancelled (0-200) mg/dL CBC 03/30/25 03/31/25 Range/Units 17:17 11:10 WBC 10.5 H 6.3 (4.5-10.0) K/mm3 RBC 4.11 L 3.74 L (4.2-5.4) M/mm3 Hgb 12.5 11.5 L (12.0-15.0) g/dL Hct 38.5 35.2 L (37.0-47.0) % Plt Count 181 138 L (150-375) k/mm3 Lymph # (Auto) 1.19 (0.9-3.2) K/mm3 [facility] # (Auto) 0.9 H (0.1-0.6) K/mm3 Eos # (Auto) 0.0 (0-0.3) K/mm3 Baso # (Auto) 0.0 (0.0-0.1) K/mm3 Comprehensive Metabolic Panel 03/30/25 03/31/25 Range/Units 17:17 11:10 Sodium 136 L 137 (137-145) mmol/L Potassium 3.7 4.1 (3.4-5.0) mmol/L Chloride 105 112 H (98-107) mmol/L Carbon Dioxide 24 22 (22-30) mmol/L BUN 21 H 12 D (7-17) mg/dL Creatinine 0.72 0.61 L (0.7-1.0) mg/dL Glucose 120 H 83 (65-110) mg/dL Calcium 8.8 8.5 (8.4-10.2) mg/dL AST 29 23 (14-36) U/L ALT 20 15 (6-35) U/L Alkaline Phosphatase 70 55 (38-126) U/L Total Protein 6.9 5.8 L (6.3-8.2) g/dL Albumin 4.0 3.1 L (3.5-5.1) g/dL Intake and Output 03/30/25 03/31/25 03/31/25 23:59 07:59 15:59 Intake Total 1000 480 Balance 1000 480 Intake: IV 1000 Sodium Chloride 0.9% IV 1,000 1000 ml @ 999 mls/hr IV CONT .Q1H1M STA Rx#:[id number] Oral 480 Other: # Unmeasured Voids 1 Patient Weight 03/31/25 23:59 Weight 60.4 kg EKG is personally reviewed and interpreted showing sinus rhythm with sinus tachycardia and frequent PACs. monitor technician was also reviewed showing periods of atrial fibrillation
[2025-03-31 16:32] LABS: Thyroid Stimulating Hormone 0.833 uIU/mL (0.465-4.680)
[2025-03-31] MEDS: SODIUM CHLORIDE 0.9% IV 1,000 ML 75 ML IV CONT (20:33)
[2025-03-31] MEDS: METOPROLOL TARTRATE 12.5 MG TABLET PO (20:41)
[2025-04-01] VITALS (18 sets, daily range): BP systolic 106–123; BP diastolic 61–71; PULSE 56–100; RESP 12–16; TEMP 36.7–37; O2SAT 97–99
[2025-04-01] MEDS: ASPIRIN 81 MG ENTERIC TABLET PO (08:56)
[2025-04-01] MEDS: METOPROLOL TARTRATE 12.5 MG TABLET PO ×2 (08:57→20:54)
[2025-04-01] MEDS: ACETAMINOPHEN 325 MG TABLET 650 MG PO ×2 (09:00→17:39)
--- NOTE | 2025-04-01 09:19 | PM.IMPN ---
Progress Note: A&P Assessment and Plan (1) Chest pain: Qualifiers: Chest pain type: unspecified Qualified Code(s): R07.9 - Chest pain, unspecified Code(s): R07.9 - Chest pain, unspecified Status: Acute (2) Arrhythmia: Qualifiers: Arrhythmia type: atrial fibrillation Atrial fibrillation type: paroxysmal Qualified Code(s): I48.0 - Paroxysmal atrial fibrillation Code(s): I49.9 - Cardiac arrhythmia, unspecified Status: Acute (3) Mixed hyperlipidemia: Code(s): E78.2 - Mixed hyperlipidemia Status: Acute (4) Dehydration: Code(s): E86.0 - Dehydration Status: Acute (5) Hypotension due to hypovolemia: Code(s): E86.1 - Hypovolemia Status: Acute Plan Hypovolemic hypotension Upon arrival in the ED, patient was hypotensive, tachycardia Elevated BUN creatinine ratio above 20 Received fluid resuscitation in the ED Blood pressure still no, start normal saline bolus 500 mL Will continue normal saline IV a 25 mL/hour, Chest pain Patient had right chest pain Worse when patient bent over Troponin x3 negative EKG showed sinus rhythm, tachycardia, frequent PAC X-ray shows no acute cardiopulmonary issue, D-dimer negative echocardiogram 03/31 1. Complete two-dimensional, color flow and Doppler transthoracic echocardiogram is performed. 2. Left ventricular chamber dimension is normal. 3. Left ventricular systolic function is normal, estimated at 60-65. 4. There is no increased left ventricular wall thickness. 5. The left ventricular diastolic function is normal. 6. Left atrial chamber dimension is mildly enlarged. 7. The mitral valve has thickened leaflets. 8. There is mild to moderate mitral valve regurgitation. 9. There is mild tricuspid valve regurgitation. court recording monitor Continue aspirin 81 mg daily p.o. ESR 5; CRP 5.7 high, pending CTA Chest Persistent AFib Patient was found have AFib in the ED Chronic patient is sinus rhythm echocardiogram see above TSH T4 wnl Follow-up dice table operator recommendation Subjective Date/time seen: 04/01/25 09:19 Interval history: I saw exam patient today, patient still has severe pain intermittently located in the right chest Patient has no fever chills. Patient also denies abdomen pain nausea vomiting diarrhea. Exam Narrative: GENERAL: Pleasant, in no acute distress. Well-nourished. - EYES: EOMI. Anicteric. - HENT: Moist mucous membranes. - LUNGS: Clear to auscultation bilaterally, no wheezing, rhonchi, or rales. - CARDIOVASCULAR: Regular rate and rhythm. No murmur. No JVD. - ABDOMEN: Soft, non-tender and non-distended. No palpable masses. - EXTREMITIES: No edema. Peripheral pulses 2+. Non-tender. - NEUROLOGIC: No focal neurological deficits. CN II-XII grossly intact. - PSYCHIATRIC: Awake, Alert and oriented x 3. Appropriate mood and affect. - SKIN: No rashes or lesions. Warm. - LYMPH: No cervical lymphadenopathy. Objective Data Vital Signs Vital Signs: Vital Signs - 24 hr 03/31/25 09:47 03/31/25 11:21 03/31/25 11:24 Temperature 98.2 F Pulse Rate 74 59 L 61 Respiratory Rate 18 Blood Pressure 98/57 L 101/53 L Pulse Oximetry 100 Oxygen Delivery 03/31/25 12:00 03/31/25 14:00 03/31/25 16:00 Temperature Pulse Rate 72 72 87 Respiratory Rate Blood Pressure Pulse Oximetry Oxygen Delivery 03/31/25 16:28 03/31/25 17:31 03/31/25 20:00 Temperature 98.1 F 98.6 F Pulse Rate 79 73 81 Respiratory Rate 18 16 Blood Pressure 131/59 L 126/68 Pulse Oximetry 100 99 Oxygen Delivery 03/31/25 20:00 03/31/25 20:00 03/31/25 20:41 Temperature Pulse Rate 74 76 Respiratory Rate Blood Pressure Pulse Oximetry Oxygen Delivery Room Air 03/31/25 22:00 03/31/25 23:39 03/31/25 23:59 Temperature 98.6 F Pulse Rate 70 76 Respiratory Rate 16 Blood Pressure 108/67 Pulse Oximetry 99 Oxygen Delivery Room Air 04/01/25 00:00 04/01/25 02:00 04/01/25 04:00 Temperature 98.2 F Pulse Rate 72 78 71 Respiratory Rate 15 Blood Pressure 116/64 Pulse Oximetry 99 Oxygen Delivery 04/01/25 04:00 04/01/25 04:00 04/01/25 06:00 Temperature Pulse Rate 84 56 L Respiratory Rate Blood Pressure Pulse Oximetry Oxygen Delivery Room Air 04/01/25 07:58 04/01/25 08:57 Temperature 98.6 F Pulse Rate 73 82 Respiratory Rate 12 Blood Pressure 123/70 Pulse Oximetry 97 Oxygen Delivery Intake/Output Intake/Output: Intake & Output 03/29/25 03/30/25 03/31/25 04/01/25 23:59 23:59 23:59 23:59 Intake Total 1000 1999.9 300 Balance 1000 1999.9 300 Meds/Results Medications: Active Medications Generic Name Dose Route Start Last Admin Trade Name Freq PRN Reason Stop Dose Admin Acetaminophen 650 mg 03/31/25 02:38 04/01/25 09:00 Acetaminophen 325 Mg Tablet PO 650 mg Q6H PRN Administration Mild Pain (1-3) or Fever Aspirin 81 mg 03/31/25 09:00 04/01/25 08:56 Aspirin 81 Mg Enteric Tablet PO 81 mg QAM KEMI Administration Heparin Sodium (Porcine) 5,000 units 03/31/25 14:00 04/01/25 05:45 Heparin Sodium 5,000 Units/Ml Vial SUB-Q 5,000 units Q8HR KEMI Administration Sodium Chloride 1,000 mls @ 75 mls/hr 03/31/25 08:55 03/31/25 20:33 Normal Saline Iv IV CONT 75 mls/hr .[id number] KEMI Administration Metoprolol Tartrate 12.5 mg 03/31/25 21:00 04/01/25 08:57 Metoprolol Tartrate 12.5 Mg Tablet PO 12.5 mg Q12HR KEMI Administration Perflutren Lipid Microsphere 0 ml 03/31/25 10:37 Perflutren Lipid Microspheres 1.5 Ml Vial Diluted To 10 Ml Total Volume IV PUSH 04/03/25 10:37 ONCE PRN adequate visualization Protocol Radiology Results: ITS Impressions Chest X-Ray 03/30/25 18:03 IMPRESSION: No acute cardiopulmonary pathology. Labs Labs: Laboratory Results - last 24 hr 03/31/25 03/31/25 03/31/25 11:06 11:10 11:10 WBC 6.3 RBC 3.74 L Hgb 11.5 L Hct 35.2 L MCV 94.1 MCH 30.7 MCHC 32.7 RDW 12.8 Plt Count 138 L MPV 9.7 Sodium 137 Potassium 4.1 Chloride 112 H Carbon Dioxide 22 Anion Gap 3 L BUN 12 D Creatinine 0.61 L Estim Creat Clear Calc 70 Estimated GFR > 60 Glucose 83 Calcium 8.5 Total Bilirubin 0.7 AST 23 ALT 15 Alkaline Phosphatase 55 C-Reactive Protein 5.7 H Cancelled Total Protein 5.8 L Albumin 3.1 L Triglycerides 72 Cholesterol LDL Cholesterol Direct HDL Direct TSH 0.833 Thyroxine (T4) 6.02 03/31/25 03/31/25 03/31/25 11:10 11:10 11:10 WBC RBC Hgb Hct MCV MCH MCHC RDW Plt Count MPV Sodium Potassium Chloride Carbon Dioxide Anion Gap BUN Creatinine Estim Creat Clear Calc Estimated GFR Glucose Calcium Total Bilirubin AST ALT Alkaline Phosphatase C-Reactive Protein Total Protein Albumin Triglycerides Cancelled Cholesterol 183 Cancelled LDL Cholesterol Direct 77 Cancelled HDL Direct 65 TSH Thyroxine (T4) 03/31/25 11:10 WBC RBC Hgb Hct MCV MCH MCHC RDW Plt Count MPV Sodium Potassium Chloride Carbon Dioxide Anion Gap BUN Creatinine Estim Creat Clear Calc Estimated GFR Glucose Calcium Total Bilirubin AST ALT Alkaline Phosphatase C-Reactive Protein Total Protein Albumin Triglycerides Cholesterol LDL Cholesterol Direct HDL Direct Cancelled TSH Thyroxine (T4)
--- NOTE | 2025-04-01 10:42 | PM.PNCARD ---
Progress Note: A&P Assessment and Plan (1) Arrhythmia: Qualifiers: Arrhythmia type: atrial fibrillation Atrial fibrillation type: paroxysmal Qualified Code(s): I48.0 - Paroxysmal atrial fibrillation Code(s): I49.9 - Cardiac arrhythmia, unspecified Status: Acute Assessment and Plan: She has frequent PACs and had a period of atrial fibrillation this morning which was asymptomatic. 2D echocardiogram with Doppler has been ordered and will be reviewed. Will check a TSH and a free T4 level. (2) Chest pain: Qualifiers: Chest pain type: unspecified Qualified Code(s): R07.9 - Chest pain, unspecified Code(s): R07.9 - Chest pain, unspecified Status: Acute Assessment and Plan: Atypical. Unlikely anginal but now has some heartburn symptoms also. It sounds pleuritic. D-dimer was negative an x-ray is unremarkable. Recommend CT chest to rule out PE. He even a D-dimer is negative it is not exclusive. Also CT scan can evaluate other causes of her atypical chest pain. Will also keep her NPO after midnight for a Lexiscan stress test. If her chest pain returns, give another dose of Toradol (3) Hypotension due to hypovolemia: Code(s): E86.1 - Hypovolemia Status: Acute Assessment and Plan: Will DC IV fluids (4) Atrial fibrillation: Code(s): I48.91 - Unspecified atrial fibrillation Status: Acute Assessment and Plan: Episode of atrial fibrillation. In sinus rhythm at this point. Continue metoprolol She has a chads Vasc score of 2 based upon age and gender. Because this score of 2 is made up of did these 2 risk factors however the recommendation would still be an anti-platelet therapy. Continue aspirin 81 mg p.o. daily Subjective Date/time seen: 04/01/25 10:42 Interval history: 64-year-old admitted for chest pain and arrhythmia Date of service 04/01/2025: Patient developed heartburn this morning and redeveloped some right-sided chest pain which is pleuritic. No shortness of breath Review of Systems Review of Systems: All systems reviewed & are unremarkable except as noted in HPI and below Constitutional: Constitutional: Denies body ache(s) and Denies excessive sweating Eyes: Eyes: Denies blurry vision ENT: Reports Normal hearing present Cardiovascular: Cardiovascular: Reports chest pain, Denies leg edema and Denies dyspnea Respiratory: Respiratory: Denies dyspnea Gastrointestinal: Gastrointestinal: Denies abdominal pain Genitourinary: Genitourinary: Denies hematuria Musculoskeletal: Musculoskeletal: Denies myalgias Integumentary/Breasts: Skin/Breast: Denies dry skin Neurologic: Reports Normal hearing present, Denies Abnormal speech present and Denies behavioral changes Psychiatric: Psychiatric: Denies anxiety and Denies behavioral changes Endocrine: Endocrine: Denies excessive sweating Hematologic/Lymphatic: Hematologic/Lymphatic: Denies easy bleeding Allergic/Immunologic: Allergic/Immunologic: Denies GI upset with certain foods Exam Narrative: Awake alert oriented appears stated age Const: General: comfortable and no acute distress HENMT: Face/Nose/Sinus: Normal nares present Mouth: Yes moist mucous membranes Eyes: General: appearance normal, both eyes and all related structures Sclera: sclerae normal Neck: Neck: supple and no JVD Carotids: no bruits Chest: Other: No reproducible chest wall pain to palpation Resp: Effort & Inspection: normal respiratory effort Auscultation: clear to auscultation bilaterally Cardio: Rate: regular rate Rhythm: regular rhythm Heart sounds: no murmurs GI: Inspection: non-distended Auscultation: normal bowel sounds Skin: General skin exam: normal color and no rashes or lesions noted Neuro: Cranial nerves: Yes Normal hearing present Speech: normal speech and No Abnormal speech present Sensory Exam: normal sensation Extrem: General: normal to inspection Psych: Mental Status: mental status grossly normal Affect: normal affect Objective Data Vital Signs Vital Signs: Vital Signs - 24 hr 03/31/25 11:21 03/31/25 11:24 03/31/25 12:00 Temperature 36.8 C Pulse Rate 59 L 61 72 Respiratory Rate 18 Blood Pressure 98/57 L 101/53 L Pulse Oximetry 100 Oxygen Delivery 03/31/25 14:00 03/31/25 16:00 03/31/25 16:28 Temperature 36.7 C Pulse Rate 72 87 79 Respiratory Rate 18 Blood Pressure 131/59 L Pulse Oximetry 100 Oxygen Delivery 03/31/25 17:31 03/31/25 20:00 03/31/25 20:00 Temperature 37.0 C Pulse Rate 73 81 Respiratory Rate 16 Blood Pressure 126/68 Pulse Oximetry 99 Oxygen Delivery Room Air 03/31/25 20:00 03/31/25 20:41 03/31/25 22:00 Temperature Pulse Rate 74 76 70 Respiratory Rate Blood Pressure Pulse Oximetry Oxygen Delivery 03/31/25 23:39 03/31/25 23:59 04/01/25 00:00 Temperature 37.0 C Pulse Rate 76 72 Respiratory Rate 16 Blood Pressure 108/67 Pulse Oximetry 99 Oxygen Delivery Room Air 04/01/25 02:00 04/01/25 04:00 04/01/25 04:00 Temperature 36.8 C Pulse Rate 78 71 84 Respiratory Rate 15 Blood Pressure 116/64 Pulse Oximetry 99 Oxygen Delivery 04/01/25 04:00 04/01/25 06:00 04/01/25 07:58 Temperature 37.0 C Pulse Rate 56 L 73 Respiratory Rate 12 Blood Pressure 123/70 Pulse Oximetry 97 Oxygen Delivery Room Air 04/01/25 08:00 04/01/25 08:00 04/01/25 08:57 Temperature Pulse Rate 72 82 Respiratory Rate Blood Pressure Pulse Oximetry 97 Oxygen Delivery Room Air 04/01/25 10:00 Temperature Pulse Rate 72 Respiratory Rate Blood Pressure Pulse Oximetry Oxygen Delivery Intake/Output Intake/Output: Intake & Output 03/29/25 03/30/25 03/31/25 04/01/25 23:59 23:59 23:59 23:59 Intake Total 1000 1999.9 420 Balance 1000 1999.9 420 Meds/Results Medications: Active Medications Generic Name Dose Route Start Last Admin Trade Name Freq PRN Reason Stop Dose Admin Acetaminophen 650 mg 03/31/25 02:38 04/01/25 09:00 Acetaminophen 325 Mg Tablet PO 650 mg Q6H PRN Administration Mild Pain (1-3) or Fever Aspirin 81 mg 03/31/25 09:00 04/01/25 08:56 Aspirin 81 Mg Enteric Tablet PO 81 mg QAM KEMI Administration Heparin Sodium (Porcine) 5,000 units 03/31/25 14:00 04/01/25 05:45 Heparin Sodium 5,000 Units/Ml Vial SUB-Q 5,000 units Q8HR KEMI Administration Sodium Chloride 1,000 mls @ 75 mls/hr 03/31/25 08:55 03/31/25 20:33 Normal Saline Iv IV CONT 75 mls/hr .[id number] KEMI Administration Metoprolol Tartrate 12.5 mg 03/31/25 21:00 04/01/25 08:57 Metoprolol Tartrate 12.5 Mg Tablet PO 12.5 mg Q12HR KEMI Administration Perflutren Lipid Microsphere 0 ml 03/31/25 10:37 Perflutren Lipid Microspheres 1.5 Ml Vial Diluted To 10 Ml Total Volume IV PUSH 04/03/25 10:37 ONCE PRN adequate visualization Protocol Radiology Results: ITS Impressions Chest X-Ray 03/30/25 18:03 IMPRESSION: No acute cardiopulmonary pathology. Labs Labs: Laboratory Results - last 24 hr 03/31/25 03/31/25 03/31/25 11:06 11:10 11:10 WBC 6.3 RBC 3.74 L Hgb 11.5 L Hct 35.2 L MCV 94.1 MCH 30.7 MCHC 32.7 RDW 12.8 Plt Count 138 L MPV 9.7 Sodium 137 Potassium 4.1 Chloride 112 H Carbon Dioxide 22 Anion Gap 3 L BUN 12 D Creatinine 0.61 L Estim Creat Clear Calc 70 Estimated GFR > 60 Glucose 83 Calcium 8.5 Total Bilirubin 0.7 AST 23 ALT 15 Alkaline Phosphatase 55 C-Reactive Protein 5.7 H Cancelled Total Protein 5.8 L Albumin 3.1 L Triglycerides 72 Cholesterol LDL Cholesterol Direct HDL Direct TSH 0.833 Thyroxine (T4) 6.02 03/31/25 03/31/25 03/31/25 11:10 11:10 11:10 WBC RBC Hgb Hct MCV MCH MCHC RDW Plt Count MPV Sodium Potassium Chloride Carbon Dioxide Anion Gap BUN Creatinine Estim Creat Clear Calc Estimated GFR Glucose Calcium Total Bilirubin AST ALT Alkaline Phosphatase C-Reactive Protein Total Protein Albumin Triglycerides Cancelled Cholesterol 183 Cancelled LDL Cholesterol Direct 77 Cancelled HDL Direct 65 TSH Thyroxine (T4) 03/31/25 11:10 WBC RBC Hgb Hct MCV MCH MCHC RDW Plt Count MPV Sodium Potassium Chloride Carbon Dioxide Anion Gap BUN Creatinine Estim Creat Clear Calc Estimated GFR Glucose Calcium Total Bilirubin AST ALT Alkaline Phosphatase C-Reactive Protein Total Protein Albumin Triglycerides Cholesterol LDL Cholesterol Direct HDL Direct Cancelled TSH Thyroxine (T4) Echo 2. Left ventricular chamber dimension is normal. 3. Left ventricular systolic function is normal, estimated at 60-65. 4. There is no increased left ventricular wall thickness. 5. The left ventricular diastolic function is normal. 6. Left atrial chamber dimension is mildly enlarged. 7. The mitral valve has thickened leaflets. 8. There is mild to moderate mitral valve regurgitation. 9. There is mild tricuspid valve regurgitation.
[2025-04-02] VITALS (11 sets, daily range): BP systolic 115–127; BP diastolic 65–71; PULSE 67–80; RESP 18–20; TEMP 36.7–36.8; O2SAT 98–99
--- NOTE | 2025-04-02 08:45 | EST_ITS ---
Patient Info Name: Radha Mendiola Age: 64 years : 1960 Gender: Female Ht: 65 in Wt: 133 lbs BSA: 1.67 m2 Exam Date: 04/02/2025 8:45 AM Patient Status: I Admit Date: 03/31/2025 Exam Type: CA stress vlad w NM A regadenoson stress test was performed. Staff Referring Physician: Jai Douglas Attending Provider: Gamal Siddiqui Nurse: Renea Herbert Exercise Technologist: Ana Dhillon Summary 1. No abnormal ST-T wave changes with lexiscan. 2. Please correlate with nuclear medicine images, reported separately. Protocol: Lexiscan Stress ECG Details Stage: REST Duration (min): 1 min : 53 sec HR (bpm): 63 SBP (mmHg): 121 DBP (mmHg): 78 Stage: REST Duration (min): 10 min : 14 sec HR (bpm): 59 SBP (mmHg): 121 DBP (mmHg): 78 Stage: STAGE 1 Duration (min): 0 min : 6 sec HR (bpm): 61 SBP (mmHg): 121 DBP (mmHg): 78 Stage: RECOVERY Duration (min): 0 min : 53 sec HR (bpm): 83 SBP (mmHg): 124 DBP (mmHg): 86 Stage: RECOVERY Duration (min): 1 min : 53 sec HR (bpm): 95 SBP (mmHg): 122 DBP (mmHg): 82 Stage: RECOVERY Duration (min): 2 min : 53 sec HR (bpm): 96 SBP (mmHg): 122 DBP (mmHg): 79 Stage: RECOVERY Duration (min): 3 min : 4 sec HR (bpm): 94 SBP (mmHg): 122 DBP (mmHg): 79 Rest HR: 59 bpm Peak HR: 97 bpm Rest Sys BP: 121 mmHg Peak Sys BP: 124 mmHg Max Pred HR: 155 bpm % Max Pred HR: 63 % Target HR: 132 bpm Max RPP: 12,028 bpm*mmHg Total Time: 0 min : 6 sec Rest Villegas BP: 78 mmHg Peak Villegas BP: 86 mmHg Total Dose: 0.4 mg Resting ECG Sinus rhythm. No ischemic ST T wave changes. Stress ECG No ischemic ST T wave changes. Arrhythmias No arrhythmia. Report Signatures
--- NOTE | 2025-04-02 09:34 | P.PNIM_ITS ---
Progress Note: A&P Assessment and Plan (1) Chest pain: Qualifiers: Chest pain type: unspecified Qualified Code(s): R07.9 - Chest pain, unspecified Code(s): R07.9 - Chest pain, unspecified Status: Acute (2) Arrhythmia: Qualifiers: Arrhythmia type: atrial fibrillation Atrial fibrillation type: paroxysmal Qualified Code(s): I48.0 - Paroxysmal atrial fibrillation Code(s): I49.9 - Cardiac arrhythmia, unspecified Status: Acute (3) Mixed hyperlipidemia: Code(s): E78.2 - Mixed hyperlipidemia Status: Acute (4) Dehydration: Code(s): E86.0 - Dehydration Status: Acute (5) Hypotension due to hypovolemia: Code(s): E86.1 - Hypovolemia Status: Acute Plan Hypovolemic hypotension Upon arrival in the ED, patient was hypotensive, tachycardia Elevated BUN creatinine ratio above 20 Received fluid resuscitation in the ED Blood pressure still no, start normal saline bolus 500 mL Received normal saline IV a 25 mL/hour, Corrected Chest pain Patient had right chest pain Worse when patient bent over Troponin x3 negative EKG showed sinus rhythm, tachycardia, frequent PAC X-ray shows no acute cardiopulmonary issue, D-dimer negative echocardiogram 03/31 1. Complete two-dimensional, color flow and Doppler transthoracic echocardiogram is performed. 2. Left ventricular chamber dimension is normal. 3. Left ventricular systolic function is normal, estimated at 60-65. 4. There is no increased left ventricular wall thickness. 5. The left ventricular diastolic function is normal. 6. Left atrial chamber dimension is mildly enlarged. 7. The mitral valve has thickened leaflets. 8. There is mild to moderate mitral valve regurgitation. 9. There is mild tricuspid valve regurgitation. 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 ESR 5; CRP 5.7 high, CTA Chest No evidence of pulmonary embolus, aortic dissection, or aortic aneurysm. Community-acquired pneumonia CT suggests pneumonia in the anterior, inferior right upper lobe. Start azithromycin ceftriaxone IV Change Augmentin p.o. on discharge Persistent AFib Patient was found have AFib in the ED Chronic patient is sinus rhythm echocardiogram see above TSH T4 wnl Continue aspirin 81 mg daily p.o. Subjective Date/time seen: 04/02/25 09:34 Interval history: I saw exam patient today, denies chest pain, abdomen pain nausea vomiting diarrhea. Afebrile blood pressure stable Exam Narrative: GENERAL: Pleasant, in no acute distress. Well-nourished. - EYES: EOMI. Anicteric. - HENT: Moist mucous membranes. - LUNGS: Clear to auscultation bilateral ly, no wheezing, rhonchi, or rales. - CARDIOVASCULAR: Regular rate and rhyth m. No murmur. No JVD. - ABDOMEN: Soft, non-tender and non-dist ended. No palpable masses. - EXTREMITIES: No edema. Peripheral puls es 2+. Non-tender. - NEUROLOGIC: No focal neurological defi cits. CN II-XII grossly intact. - PSYCHIATRIC: Awake, Alert and oriented x 3. Appropriate mood and affect. - SKIN: No rashes or lesions. Warm. - LYMPH: No cervical lymphadenopathy. Objective Data Vital Signs Vital Signs: Vital Signs - 24 hr 04/01/25 10:00 04/01/25 11:49 04/01/25 12:00 Temperature 98.2 F Pulse Rate 72 65 Respiratory Rate 12 Blood Pressure 110/62 Pulse Oximetry 99 99 Oxygen Delivery Room Air 04/01/25 12:00 04/01/25 14:00 04/01/25 16:00 Temperature 98.2 F Pulse Rate 60 75 69 Respiratory Rate 16 Blood Pressure 106/61 Pulse Oximetry 97 Oxygen Delivery 04/01/25 16:00 04/01/25 16:00 04/01/25 18:00 Temperature Pulse Rate 76 100 Respiratory Rate Blood Pressure Pulse Oximetry 97 Oxygen Delivery Room Air 04/01/25 19:54 04/01/25 20:00 04/01/25 20:00 Temperature 98.4 F Pulse Rate 99 84 Respiratory Rate 16 Blood Pressure 111/71 Pulse Oximetry 98 97 Oxygen Delivery Room Air 04/01/25 20:54 04/01/25 23:21 04/01/25 23:34 Temperature 98.0 F Pulse Rate 80 69 Respiratory Rate 16 Blood Pressure 118/66 Pulse Oximetry 99 97 Oxygen Delivery Room Air 04/02/25 00:00 04/02/25 03:01 04/02/25 03:41 Temperature 98.0 F Pulse Rate 71 71 Respiratory Rate 18 Blood Pressure 115/71 Pulse Oximetry 99 99 Oxygen Delivery Room Air 04/02/25 04:00 04/02/25 07:47 Temperature 98.3 F Pulse Rate 77 77 Respiratory Rate 18 Blood Pressure 117/65 Pulse Oximetry 98 Oxygen Delivery Intake/Output Intake/Output: Intake & Output 03/30/25 03/31/25 04/01/25 04/02/25 23:59 23:59 23:59 23:59 Intake Total 1000 1999.9 1450 375 Balance 1000 1999.9 1450 375 Meds/Results Medications: Active Medications Generic Name Dose Route Start Last Admin Trade Name Freq PRN Reason Stop Dose Admin Acetaminophen 650 mg 03/31/25 02:38 04/01/25 17:39 Acetaminophen 325 Mg Tablet PO 650 mg Q6H PRN Administration Mild Pain (1-3) or Fever Aspirin 81 mg 03/31/25 09:00 04/01/25 08:56 Aspirin 81 Mg Enteric Tablet PO 81 mg QAM KEMI Administration Heparin Sodium (Porcine) 5,000 units 03/31/25 14:00 04/02/25 04:59 Heparin Sodium 5,000 Units/Ml Vial SUB-Q 5,000 units Q8HR KEMI Administration Metoprolol Tartrate 12.5 mg 03/31/25 21:00 04/01/25 20:54 Metoprolol Tartrate 12.5 Mg Tablet PO 12.5 mg Q12HR KEMI Administration Perflutren Lipid Microsphere 0 ml 03/31/25 10:37 Perflutren Lipid Microspheres 1.5 Ml Vial Diluted To 10 Ml Total Volume IV PUSH 04/03/25 10:37 ONCE PRN adequate visualization Protocol Radiology Results: ITS Impressions Chest X-Ray 03/30/25 18:03 IMPRESSION: No acute cardiopulmonary pathology. Chest CTA 04/02/25 06:03 Impression: No evidence of pulmonary embolus, aortic dissection, or aortic aneurysm. Pneumonia in the anterior, inferior right upper lobe. Minimal right pleural effusion.
[2025-04-02] MEDS: METOPROLOL TARTRATE 12.5 MG TABLET PO (09:37)
[2025-04-02] MEDS: ASPIRIN 81 MG ENTERIC TABLET PO (09:37)
--- NOTE | 2025-04-02 09:38 | PC.NURSE ---
Pt to nuclear medicine via wheelchair for Tessa.
--- NOTE | 2025-04-02 09:54 | PM.PNCARD ---
Progress Note: A&P Assessment and Plan (1) Arrhythmia: Qualifiers: Arrhythmia type: atrial fibrillation Atrial fibrillation type: paroxysmal Qualified Code(s): I48.0 - Paroxysmal atrial fibrillation Code(s): I49.9 - Cardiac arrhythmia, unspecified Status: Acute Assessment and Plan: She has frequent PACs and had a period of atrial fibrillation yesterday which was asymptomatic. Echo unremarkable. (2) Chest pain: Qualifiers: Chest pain type: unspecified Qualified Code(s): R07.9 - Chest pain, unspecified Code(s): R07.9 - Chest pain, unspecified Status: Acute Assessment and Plan: Lexiscan negative for any ischemia. Normal systolic function. (3) Hypotension due to hypovolemia: Code(s): E86.1 - Hypovolemia Status: Acute Assessment and Plan: resolved (4) Atrial fibrillation: Code(s): I48.91 - Unspecified atrial fibrillation Status: Acute Assessment and Plan: Episode of atrial fibrillation. In sinus rhythm at this point. Continue metoprolol. She has a chads Vasc score of 2 based upon age and gender. Because this score is made up of these 2 risk factors the recommendation would still be an anti-platelet therapy. Continue aspirin 81 mg p.o. daily Plan OK for discharge from a cardiac perspective Subjective Date/time seen: 04/02/25 09:54 Interval history: 64-year-old admitted for chest pain and arrhythmia Date of service 04/01/2025: Patient developed heartburn this morning and redeveloped some right-sided chest pain which is pleuritic. No shortness of breath Date of service 04/02/2025: Feeling well today and has no complaints. Review of Systems Review of Systems: All systems reviewed & are unremarkable except as noted in HPI and below Constitutional: Constitutional: Denies body ache(s) and Denies excessive sweating Eyes: Eyes: Denies blurry vision ENT: Reports Normal hearing present Cardiovascular: Cardiovascular: Reports chest pain, Denies leg edema and Denies dyspnea Respiratory: Respiratory: Denies dyspnea Gastrointestinal: Gastrointestinal: Denies abdominal pain Genitourinary: Genitourinary: Denies hematuria Musculoskeletal: Musculoskeletal: Denies myalgias Integumentary/Breasts: Skin/Breast: Denies dry skin Neurologic: Reports Normal hearing present, Denies Abnormal speech present and Denies behavioral changes Psychiatric: Psychiatric: Denies anxiety and Denies behavioral changes Endocrine: Endocrine: Denies excessive sweating Hematologic/Lymphatic: Hematologic/Lymphatic: Denies easy bleeding Allergic/Immunologic: Allergic/Immunologic: Denies GI upset with certain foods Exam Narrative: Awake alert oriented appears stated age Const: General: comfortable and no acute distress HENMT: Face/Nose/Sinus: Normal nares present Mouth: Yes moist mucous membranes Eyes: General: appearance normal, both eyes and all related structures Sclera: sclerae normal Neck: Neck: supple and no JVD Carotids: no bruits Chest: Other: No reproducible chest wall pain to palpation Resp: Effort & Inspection: normal respiratory effort Auscultation: clear to auscultation bilaterally Cardio: Rate: regular rate Rhythm: regular rhythm Heart sounds: no murmurs GI: Inspection: non-distended Auscultation: normal bowel sounds Skin: General skin exam: normal color and no rashes or lesions noted Neuro: Cranial nerves: Yes Normal hearing present Speech: normal speech and No Abnormal speech present Sensory Exam: normal sensation Extrem: General: normal to inspection Psych: Mental Status: mental status grossly normal Affect: normal affect Objective Data Vital Signs Vital Signs: Vital Signs - 24 hr 04/01/25 10:00 04/01/25 11:49 04/01/25 12:00 Temperature 36.8 C Pulse Rate 72 65 Respiratory Rate 12 Blood Pressure 110/62 Pulse Oximetry 99 99 Oxygen Delivery Room Air 04/01/25 12:00 04/01/25 14:00 04/01/25 16:00 Temperature 36.8 C Pulse Rate 60 75 69 Respiratory Rate 16 Blood Pressure 106/61 Pulse Oximetry 97 Oxygen Delivery 04/01/25 16:00 04/01/25 16:00 04/01/25 18:00 Temperature Pulse Rate 76 100 Respiratory Rate Blood Pressure Pulse Oximetry 97 Oxygen Delivery Room Air 04/01/25 19:54 04/01/25 20:00 04/01/25 20:00 Temperature 36.9 C Pulse Rate 99 84 Respiratory Rate 16 Blood Pressure 111/71 Pulse Oximetry 98 97 Oxygen Delivery Room Air 04/01/25 20:54 04/01/25 23:21 04/01/25 23:34 Temperature 36.7 C Pulse Rate 80 69 Respiratory Rate 16 Blood Pressure 118/66 Pulse Oximetry 99 97 Oxygen Delivery Room Air 04/02/25 00:00 04/02/25 03:01 04/02/25 03:41 Temperature 36.7 C Pulse Rate 71 71 Respiratory Rate 18 Blood Pressure 115/71 Pulse Oximetry 99 99 Oxygen Delivery Room Air 04/02/25 04:00 04/02/25 07:47 04/02/25 09:37 Temperature 36.8 C Pulse Rate 77 77 70 Respiratory Rate 18 Blood Pressure 117/65 Pulse Oximetry 98 Oxygen Delivery Intake/Output Intake/Output: Intake & Output 03/30/25 03/31/25 04/01/25 04/02/25 23:59 23:59 23:59 23:59 Intake Total 1000 1999.9 1450 375 Balance 1000 1999.9 1450 375 Meds/Results Medications: Active Medications Generic Name Dose Route Start Last Admin Trade Name Freq PRN Reason Stop Dose Admin Acetaminophen 650 mg 03/31/25 02:38 04/01/25 17:39 Acetaminophen 325 Mg Tablet PO 650 mg Q6H PRN Administration Mild Pain (1-3) or Fever Aspirin 81 mg 03/31/25 09:00 04/02/25 09:37 Aspirin 81 Mg Enteric Tablet PO 81 mg QAM KEMI Administration Heparin Sodium (Porcine) 5,000 units 03/31/25 14:00 04/02/25 04:59 Heparin Sodium 5,000 Units/Ml Vial SUB-Q 5,000 units Q8HR KEMI Administration Azithromycin 500 mg/ Sodium 250 mls @ 250 mls/hr 04/02/25 09:50 Chloride IVPB Q24H KEMI Ceftriaxone Sodium 2 gm/ 100 mls @ 200 mls/hr 04/02/25 09:50 Sodium Chloride IVPB Q24H KEMI Metoprolol Tartrate 12.5 mg 03/31/25 21:00 04/02/25 09:37 Metoprolol Tartrate 12.5 Mg Tablet PO 12.5 mg Q12HR KEMI Administration Perflutren Lipid Microsphere 0 ml 03/31/25 10:37 Perflutren Lipid Microspheres 1.5 Ml Vial Diluted To 10 Ml Total Volume IV PUSH 04/03/25 10:37 ONCE PRN adequate visualization Protocol Radiology Results: ITS Impressions Chest X-Ray 03/30/25 18:03 IMPRESSION: No acute cardiopulmonary pathology. Chest CTA 04/02/25 06:03 Impression: No evidence of pulmonary embolus, aortic dissection, or aortic aneurysm. Pneumonia in the anterior, inferior right upper lobe. Minimal right pleural effusion.
--- NOTE | 2025-04-02 11:06 | PC.NURSE ---
Pt returned from nuclear medicine via wheelchair.
[2025-04-02] MEDS: AZITHROMYCIN IV 500 MG in SODIUM CHLORIDE 0.9% IV 250 ML IVPB (11:30)
[2025-04-02] MEDS: cefTRIAXone 2 GM in SODIUM CHLORIDE 0.9% IV 100 ML 200 ML IVPB (11:30)
--- NOTE | 2025-04-02 14:19 | P.DS_ITS ---
DS: Admitting Diagnosis Discharge Date 04/02/25 Admitting Diagnosis (1) Chest pain: Qualifiers: Chest pain type: unspecified Qualified Code(s): R07.9 - Chest pain, unspecified Code(s): R07.9 - Chest pain, unspecified Status: Acute (2) Arrhythmia: Qualifiers: Arrhythmia type: atrial fibrillation Atrial fibrillation type: paroxysmal Qualified Code(s): I48.0 - Paroxysmal atrial fibrillation Code(s): I49.9 - Cardiac arrhythmia, unspecified Status: Acute (3) Mixed hyperlipidemia: Code(s): E78.2 - Mixed hyperlipidemia Status: Acute (4) Dehydration: Code(s): E86.0 - Dehydration Status: Acute (5) Hypotension due to hypovolemia: Code(s): E86.1 - Hypovolemia Status: Acute DS: Discharge Diagnosis Discharge Diagnosis (1) Chest pain: Qualifiers: Chest pain type: unspecified Qualified Code(s): R07.9 - Chest pain, unspecified Code(s): R07.9 - Chest pain, unspecified Status: Acute (2) Arrhythmia: Qualifiers: Arrhythmia type: atrial fibrillation Atrial fibrillation type: paroxysmal Qualified Code(s): I48.0 - Paroxysmal atrial fibrillation Code(s): I49.9 - Cardiac arrhythmia, unspecified Status: Acute (3) Mixed hyperlipidemia: Code(s): E78.2 - Mixed hyperlipidemia Status: Acute (4) Dehydration: Code(s): E86.0 - Dehydration Status: Acute (5) Hypotension due to hypovolemia: Code(s): E86.1 - Hypovolemia Status: Acute DS: Summary Hospital Course Hospital Course: 64 years old lady without significant past medical history present ED with chief complaint of chest pain. The chest pain started yesterday evening when patient will watch in kv. Patient has been having intermittent chest pain since , worse with bending forward and walking. Relief at rest patient denies headache, lightheadedness, fever, chills, abdomen pain, nausea vomiting diarrhea dysuria Upon arrival to ED, patient afebrile, patient was found have tachycardia, pulse ox 100% room air 90/54, Patient was found AFib in the ED Chemistry unremarkable except elevated BUN creatinine ratio 21/0.72 Troponin x3 negative EKG showed statin medicine, frequent PAC Chest x-ray showed no acute cardiopulmonary issues D-dimer negative The following med issues have been addressed during hospitalization Hypovolemic hypotension Upon arrival in the ED, patient was hypotensive, tachycardia Elevated BUN creatinine ratio above 20 Received fluid resuscitation in the ED Blood pressure still no, start normal saline bolus 500 mL Received normal saline IV a 25 mL/hour, Corrected Chest pain Patient had right chest pain Worse when patient bent over Troponin x3 negative EKG showed sinus rhythm, tachycardia, frequent PAC X-ray shows no acute cardiopulmonary issue, D-dimer negative echocardiogram 03/31 1. Complete two-dimensional, color flow and Doppler transthoracic echocardiogram is performed. 2. Left ventricular chamber dimension is normal. 3. Left ventricular systolic function is normal, estimated at 60-65. 4. There is no increased left ventricular wall thickness. 5. The left ventricular diastolic function is normal. 6. Left atrial chamber dimension is mildly enlarged. 7. The mitral valve has thickened leaflets. 8. There is mild to moderate mitral valve regurgitation. 9. There is mild tricuspid valve regurgitation. hall monitor Continue aspirin 81 mg daily p.o. ESR 5; CRP 5.7 high, CTA Chest No evidence of pulmonary embolus, aortic dissection, or aortic aneurysm. Nuclear stress test negative for ischemia Community-acquired pneumonia CT suggests pneumonia in the anterior, inferior right upper lobe. Start azithromycin ceftriaxone IV Change Augmentin p.o for 4 more days. on discharge Persistent AFib Patient was found have AFib in the ED Chronic patient is sinus rhythm echocardiogram see above TSH T4 wnl Continue aspirin 81 mg daily p.o. metoprolol succinate 50 mg daily p.o. Time Spent with Patient Time attestation: Total time spent providing and/or coordinating discharge services: Exam Narrative: GENERAL: Pleasant, in no acute distress. Well-nourished. - EYES: EOMI. Anicteric. - HENT: Moist mucous membranes. - LUNGS: Clear to auscultation bilateral ly, no wheezing, rhonchi, or rales. - CARDIOVASCULAR: Regular rate and rhyth m. No murmur. No JVD. - ABDOMEN: Soft, non-tender and non-dist ended. No palpable masses. - EXTREMITIES: No edema. Peripheral puls es 2+. Non-tender. - NEUROLOGIC: No focal neurological defi cits. CN II-XII grossly intact. - PSYCHIATRIC: Awake, Alert and oriented x 3. Appropriate mood and affect. - SKIN: No rashes or lesions. Warm. - LYMPH: No cervical lymphadenopathy. Discharge Plan Discharge Attending physician on discharge: Jai Douglas Consulting providers: Vamshi Yee Discharging Clinician: Jai Douglas Anticipated Discharge Date/Time: 04/02/25 14:19 Patient Disposition: Home Activity: as tolerated Diet: as tolerated and heart healthy Patient Instructions: Antibiotic Form, Chest Pain (GEN) Patient Language: [place] Stand Alone Forms: General Discharge Information Follow-up/Referrals: Vamshi Yee MD [Physician] - (Call Cardiology for follow-up appointment) Sarina Currie MD [Primary Care Provider] - (See PCP in 1 week) Discharge Medications: New aspirin 81 mg Tablet,Delayed Release (Dr/Ec) 81 mg PO QAM Qty: 60 0RF amoxicillin-pot clavulanate 875-125 mg tablet 1 tablet PO Q12H Qty: 8 0RF metoprolol succinate 50 mg tablet extended release 24 hr 50 mg PO DAILY Qty: 60 0RF Continued biotin 5 mg capsule 5 mg PO DAILY Caltrate 600 plus D 600 mg (1,500 mg)-800 unit tablet,chewable 1 tablet PO .Q12hr One-A-Day Womens Formula 18 mg iron-400 mcg-500 mg tablet 1 tablet PO DAILY Rx Instructions: give with meal/snack glucosamine-chondroitin [Osteo Bi-Flex] 250-200 mg tablet 2 tablet PO .q12HR Rx Instructions: give after food/meal Date of admission: 03/31/25 15:50 Primary Care Provider: Sarina Currie Admitting Provider: Gamal Siddiqui Attending physician on admission: Gamal Siddiqui Condition: Stable
--- NOTE | 2025-04-02 15:04 | PC.NURSE ---
Clarified discharge dose of Metoprolol with Cardiology [employer]. New order for the metoprolol dose to be 25mg PO Daily not 50mg PO daily. Order entered and updated by this RN. Outside pharmacy notified of changes.
== END 2025-04-02 15:17 | disposition home or self-care (01) | DRG 308 ==
LOC: ANHED 20:10 → ANHIMU 23:42
PROVIDERS: Emergency Medicine; Internal Medicine Cardiovascular Disease; Admitting Provider Internal Medicine; Emergency Provider Physician Assistant; PCP Family Medicine; Visit Provider Hospitalist
DX: I48.19 Other persistent atrial fibrillation (principal); J18.9 Pneumonia, unspecified organism; R07.81 Pleurodynia; R00.0 Tachycardia, unspecified; E78.2 Mixed hyperlipidemia; E86.0 Dehydration; E86.1 Hypovolemia; I95.9 Hypotension, unspecified; Z85.828 Personal history of other malignant neoplasm of skin; Z90.710 Acquired absence of both cervix and uterus; Z90.722 Acquired absence of ovaries, bilateral; Z98.42 Cataract extraction status, left eye; Z98.41 Cataract extraction status, right eye
CPT/HCPCS: 36415; 71046; 71275; 78452; 80053; 80061; 83690; 83735; 84436; 84443; 84484; 85025; 85027; 85380; 85610; 85730; 86140; 93005; 93017; 93306; 96361; 96374; 96375; 99285; A9270; A9502; C8929; G0378; J0456; J0616; J0696; J1644; J1885; J2270; J2405; J2785; J7030; J7040; J7050; Q9967